=== PATIENT | female | born 1945 | race Caucasian/White ===

== ENCOUNTER 2019-05-18 13:03 | Emergency (ER) | payer MEDICARE, BC | END 2019-05-18 13:23 | disposition left against medical advice (07) | LOC: JD.ED 13:03 | DX: Z53.21 Procedure and treatment not carried out due to patient leaving prior to being seen by health care provider (principal) ==

== ENCOUNTER 2019-05-18 14:53 | Emergency (ER) | payer MEDICARE, BC ==
[2019-05-18 15:04] VITALS: BP 147/80; PULSE 74
--- NOTE | 2019-05-18 15:31 | EDM.PDOC ---
ED HPI GENERAL MEDICAL PROBLEM - General Chief Complaint: Respiratory Problem Stated Complaint: HURTS TO BREATHE Time Seen by Provider: 05/18/19 15:07 Source of Information: Reports: Patient, RN Notes Reviewed History Limitations: Reports: No Limitations - History of Present Illness INITIAL COMMENTS - FREE TEXT/NARRATIVE: The patient is a 74-year-old female who presents to the ED for the evaluation of her left sided chest discomfort. The patient states she woke up this morning around 530, and went about her daily activities making breakfast. When she noticed some burning in her chest, and a slight dry cough. Patient states she does reside in the winter in [facility], and recently got home May 10, she states that her and her did go out to get groceries after they got home, but have been home ever since. Patient does not have a fever at time of triage, nor does she recount having a fever at home. She states that she is having difficulty breathing and taking a deep breath as she states this does hurt her chest. The patient is quite concerned about the coronavirus at this time. She did check into the ER earlier, but then was deferred to the clinic per her choice for testing, but she states that she was not tested, and she went to the walk-in clinic for evaluation but they sent her back here as they felt it was more of a cardiac etiology. Patient states she does have a little bit of chest pressure in her sternal area, to the left side. She just feels as if there is something not right. She is not had any cardiac history, but does recount some valvular issues. Patient states that she does go on a 1.5 mile walk daily, she did not go on her walk today, but states she had no issues doing this yesterday - Related Data Allergies Allergy/AdvReac Type Severity Reaction Status Date / Time No Known Allergies Allergy Verified 10/23/14 21:27 Home Meds: Home Meds Calcium Carbonate/Vitamin D3 [Cvs Calcium + Vitamin D3 Sftgl] 1 cap PO BID 07/12 [History] Cholecalciferol (Vitamin D3) [Vitamin D3] 1 cap PO DAILY 07/12/14 [History] Denosumab [Prolia] 60 mg SQ ASDIRECTED 07/12/14 [History] Folic Acid 1 mg PO DAILY 07/12/14 [History] Glucosam/Chond/Collagen/Hyalur [Glucosamine Chondroitin] 1 cap PO DAILY [History] Levothyroxine [Synthroid] 50 mcg PO DAILY 07/12/14 [History] Multivitamin with Minerals [Multiple Vitamin] 1 tab PO DAILY 07/12/14 [History] [place]erson-3 Fatty Acids [Paterson-3] 1 cap PO BID 07/12/14 [History] Glucosamine/D3/Boswellia Marisol [Osteo Bi-Flex Caplet] 1 tab PO DAILY 10/23/14 [ History] Abatacept [Orencia] 500 mg IV ASDIRECTED #0 10/26/14 [Rx] Ondansetron [Zofran ODT] 4 mg PO Q6H PRN #10 tab.dis 10/26/14 [Rx] Acetaminophen [Tylenol Arthritis] 650 mg PO BID 05/18/19 [History] Past Medical History 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 Musculoskeletal History: Reports: RA, Other (See Below) Other Musculoskeletal History: elbow surgery due to fall Endocrine/Metabolic History: Reports: Hypothyroidism, Osteopenia - Past Surgical History HEENT Surgical History: Reports: Tonsillectomy Female Surgical History: Reports: Hysterectomy Musculoskeletal Surgical History: Reports: Arthroscopic Procedure Social & Family History - Living Situation & Occupation Living situation: Reports: , with Spouse Occupation: Retired ED ROS GENERAL - Review of Systems Review Of Systems: See Below Constitutional: Denies: Fever, Chills HEENT: Denies: Rhinitis Respiratory: Reports: Shortness of Breath (difficulty getting a deep breath in) Cardiovascular: Reports: Chest Pain (L sided chest discomfort). Denies: Dyspnea on Exertion, Lightheadedness GI/Abdominal: Denies: Abdominal Pain, Constipation, Diarrhea, Nausea, Vomiting Psychiatric: Denies: Anxiety ED EXAM, GENERAL - Physical Exam Exam: See Below Exam Limited By: No Limitations General Appearance: Alert, WD/WN, No Apparent Distress Ears: Normal External Exam Nose: Normal Inspection Throat/Mouth: Normal Inspection, Normal Lips, Normal Teeth, Normal Gums, Normal Oropharynx, Normal Voice, No Airway Compromise Head: Atraumatic, Normocephalic Neck: Normal Inspection Respiratory/Chest: No Respiratory Distress, Lungs Clear, Normal Breath Sounds, No Accessory Muscle Use, Chest Non-Tender Cardiovascular: Normal Peripheral Pulses, Regular Rate, Rhythm, No Edema, No JVD , No Murmur Peripheral Pulses: 3+: Radial (L), Radial (R) GI/Abdominal: Normal Bowel Sounds, Soft, Non-Tender, No Distention, No Mass Extremities: Normal Inspection, Normal Capillary Refill Neurological: Alert, Oriented, Normal Cognition, No Motor/Sensory Deficits Psychiatric: Normal Affect, Normal Mood Skin Exam: Warm, Dry, Intact, Normal Color, No Rash EKG INTERPRETATION EKG Date: 05/18/19 Time: 15:22 Rhythm: NSR Rate (Beats/Min): 70 [place]: Normal P-Wave: Present QRS: Normal ST-T: Normal QT: Normal EKG Interpretation Comments: no acute ischemic change, reviewed by myself and Dr. Little Course - Vital Signs Last Recorded V/S: Last Vital Signs Temp 97.1 F 05/18/19 15:01 Pulse 74 05/18/19 15:01 Resp 15 05/18/19 15:01 BP 147/80 H 05/18/19 15:01 Pulse Ox 98 05/18/19 15:01 - Orders/Labs/Meds Orders: Active Orders 24 hr Category Date Time Status EKG Documentation Completion [RC] STAT Care 05/18/19 15:10 Ordered Labs: Laboratory Tests 05/18/19 05/18/19 05/18/19 Range/Units 15:33 15:33 15:33 WBC 6.46 (3.98-10.04) K/mm3 RBC 4.82 (3.98-5.22) M/mm3 Hgb 14.1 D (11.2-15.7) gm/dl Hct 44.3 (34.1-44.9) % MCV 91.9 (79.4-94.8) fl MCH 29.3 (25.6-32.2) pg MCHC 31.8 L (32.2-35.5) g/dl RDW Std Deviation 43.7 (36.4-46.3) fL Plt Count 242 (182-369) K/mm3 MPV 8.4 L (9.4-12.3) fl Neutrophils % (Manual) 73 H (40-60) % Band Neutrophils % 0 (0-10) % Lymphocytes % (Manual) 22 (20-40) % Atypical Lymphs % 0 % Monocytes % (Manual) 4 (2-10) % Eosinophils % (Manual) 1 (0.7-5.8) % Basophils % (Manual) 0 L (0.1-1.2) Platelet Estimate Adequate RBC Morph Comment Normal PT 11.9 (9.7-12.0) SECONDS INR 1.10 APTT 25 (22-31) SECONDS Sodium 142 (136-145) mEq/L Potassium 4.3 (3.5-5.1) mEq/L Chloride 105 (98-107) mEq/L Carbon Dioxide 28 (21-32) mEq/L Anion Gap 13.3 (5-15) BUN 13 (7-18) mg/dL Creatinine 0.7 (0.55-1.02) mg/dL Est Cr Clr Drug Dosing 58.94 mL/min Estimated GFR (MDRD) > 60 (>60) mL/min BUN/Creatinine Ratio 18.6 H (14-18) Glucose 100 (83-115) mg/dL Calcium 8.9 (8.5-10.1) mg/dL Magnesium 2.1 (1.8-2.4) mg/dl Total Bilirubin 0.4 (0.2-1.0) mg/dL AST 23 (15-37) U/L ALT 35 (14-59) U/L Alkaline Phosphatase 56 (46-116) U/L Troponin I < 0.017 (0.00-0.056) ng/mL NT-Pro-B Natriuret Pep (0-125) pg/mL Total Protein 7.2 (6.4-8.2) g/dl Albumin 3.7 (3.4-5.0) g/dl Globulin 3.5 gm/dL Albumin/Globulin Ratio 1.1 (1-2) 03/25/20 Range/Units 15:33 WBC (3.98-10.04) K/mm3 RBC (3.98-5.22) M/mm3 Hgb (11.2-15.7) gm/dl Hct (34.1-44.9) % MCV (79.4-94.8) fl MCH (25.6-32.2) pg MCHC (32.2-35.5) g/dl RDW Std Deviation (36.4-46.3) fL Plt Count (182-369) K/mm3 MPV (9.4-12.3) fl Neutrophils % (Manual) (40-60) % Band Neutrophils % (0-10) % Lymphocytes % (Manual) (20-40) % Atypical Lymphs % % Monocytes % (Manual) (2-10) % Eosinophils % (Manual) (0.7-5.8) % Basophils % (Manual) (0.1-1.2) Platelet Estimate RBC Morph Comment PT (9.7-12.0) SECONDS INR APTT (22-31) SECONDS Sodium (136-145) mEq/L Potassium (3.5-5.1) mEq/L Chloride (98-107) mEq/L Carbon Dioxide (21-32) mEq/L Anion Gap (5-15) BUN (7-18) mg/dL Creatinine (0.55-1.02) mg/dL Est Cr Clr Drug Dosing mL/min Estimated GFR (MDRD) (>60) mL/min BUN/Creatinine Ratio (14-18) Glucose (83-115) mg/dL Calcium (8.5-10.1) mg/dL Magnesium (1.8-2.4) mg/dl Total Bilirubin (0.2-1.0) mg/dL AST (15-37) U/L ALT (14-59) U/L Alkaline Phosphatase (46-116) U/L Troponin I (0.00-0.056) ng/mL NT-Pro-B Natriuret Pep 69 (0-125) pg/mL Total Protein (6.4-8.2) g/dl Albumin (3.4-5.0) g/dl Globulin gm/dL Albumin/Globulin Ratio (1-2) - Re-Assessments/Exams Free Text/Narrative Re-Assessment/Exam: 05/18/19 15:34 Patient presents to the ED today for the evaluation of some difficulty breathing. I have ordered an EKG, chest x-ray, and other lab work for further evaluation. Patient is afebrile at time of triage and does not recount a fever at home, even with her traveling from [facility], and being in a [employer] like [employer]ist while down there and coming home and grocery shopping. I do believe she is fairly low risk for having contracted coronavirus at all. 1 of the only risk factors is her age obviously, and that she has been in baptist type settings, but does live at home and has been self quarantined since she got home on the . Patient has no other symptoms other than the shortness of breath and a slight dry cough, and she did not cough at any point during exam. 05/18/19 17:04 The patient's cardiac work-up is within normal limits. Chest x-ray does show signs of emphysematous changes but no other consolidation or infiltrates. I did assure the patient that the likelihood of her having coronavirus is very low due to her not having a fever. I will direct her back to her regular care provider for a possible stress test and for a blood pressure check as she states her blood pressures normally in the low 100s and was concerned as its 130 systolically now. I did tell her to take some blood pressures at home, and trend these to see if they stay elevated or not. Patient was okay with this plan at this time. I will have the patient fpc in place at home as much as possible. Departure - Departure Time of Disposition: 17:06 Disposition: Home, Self-Care 01 Condition: Fair Clinical Impression: Atypical chest pain - Discharge Information *PRESCRIPTION DRUG MONITORING PROGRAM REVIEWED*: No *COPY OF PRESCRIPTION DRUG MONITORING REPORT IN PATIENT IRAIS: No Instructions: Nonspecific Chest Pain, Adult, [id number] Referrals: Veda Szymanski MD [Primary Care Provider] - Forms: ED Department Discharge Additional Instructions: You were evaluated in the ER today regarding your difficulty breathing. Your work-up in the ER today included an EKG, chest x-ray, and lab work. All of which were within normal limits. Recommend you keep tabs on your blood pressure, and schedule a follow-up appointment with your primary care provider in the next week or so for further evaluation and to make sure your symptoms are getting better as expected. Recommend you talk with your provider about a possible stress test for further cardiac evaluation. At this time you are deemed fairly low risk for having coronavirus. However if your symptoms seem to worsen, please do not hesitate to seek care for reevaluation. At this time the [place] [facility] of [facility] is asking that we ration the testing, and unfortunately without a fever, you do not screen in for testing at this time. Please return to the ER at any time if symptoms change or worsen. Sepsis Event Note - Evaluation Sepsis Screening Result: No Definite Risk - Focused Exam Vital Signs: Vital Signs Temp Pulse Resp BP Pulse Ox 05/18/19 15:01 97.1 F 74 15 147/80 H 98 Date Exam was Performed: 05/18/19 Time Exam was Performed: 17:04 - My Orders Last 24 Hours: My Active Orders 05/18/19 15:10 EKG Documentation Completion [RC] STAT - Assessment/Plan Last 24 Hours: My Active Orders 05/18/19 15:10 EKG Documentation Completion [RC] STAT
--- NOTE | 2019-05-18 15:33 | CR ---
Chest: 2 views of the chest were obtained. Comparison: No prior chest imaging. Heart size and mediastinum are within normal limits. Lungs are clear. Scoliosis is noted within the spine. Surgical clips are seen within the upper right abdomen. Lungs are slightly hyperinflated compatible with emphysematous change. Impression: 1. Emphysematous change. 2. Other findings as noted above. 3. Nothing acute is appreciated. Diagnostic code #2 This report was dictated in MDT
== END 2019-05-18 17:20 | disposition home or self-care (01) ==
LOC: JD.ED 14:53
DX: R07.89 Other chest pain (principal); Z79.899 Other long term (current) drug therapy
CPT/HCPCS: 36415; 71046; 71046-26; 80053; 83735; 83880; 84484; 85007; 85027; 85610; 85730; 93005; 93010; 99283; 99285-25

== ENCOUNTER 2019-06-23 07:30 | Emergency (ER) | payer MEDICARE, BC ==
--- NOTE | 2019-06-23 08:11 | EDM.PDOC ---
ED HPI GENERAL MEDICAL PROBLEM - General Chief Complaint: General Stated Complaint: LEFT SIDE OF HEAD AND BACK PAIN Time Seen by Provider: 06/23/19 07:47 Source of Information: Reports: Patient History Limitations: Reports: No Limitations - History of Present Illness INITIAL COMMENTS - FREE TEXT/NARRATIVE: Mrs. Malave is a very pleasant 74-year-old woman with a past medical history significant for rheumatoid arthritis, untreated anxiety, and irritable bowel syndrome, who now presents to the ED stating that she developed left upper chest pain that radiated to the left side of her neck, down the upper left side of her back, and up to her left ear and the left side of her head 2 weeks ago. She states that it has been constant, she has not identified any modifiers. She also reports occasional slight dyspnea on exertion for the past 2 weeks, that has been worse over the past 2 days. She has been having nausea come and go since yesterday. She has had chills, but no fever for the past 2 to 3 weeks , and states that she has had a "scratchy throat" for an unknown period of time. Other than the symptoms, however, the patient denies recent fever, ear pain, nasal or sinus congestion, cough, dyspnea at rest, palpitations, vomiting , constipation, diarrhea, abdominal pain, urinary symptoms, recent weight gain or weight loss, recent bloody bowel movements or black bowel movements, recent joint aches, headaches, or rashes. The patient states that she was screened for COVID-19 yesterday, not because of her symptoms, but because her is at risk for illness, therefore she wanted to get checked out. She does not have those results yet. Here in the ED, the patient is found to be hemodynamically stable, afebrile, saturating 100% on room air. The patient's PCP is Dr. Veda Samuels. Her Journeyman Pipefitter is Dr. Ty Hahn. Left Chest Pain Score (Numeric/FACES): 7 - Related Data Allergies Allergy/AdvReac Type Severity Reaction Status Date / Time No Known Allergies Allergy Verified 06/23/19 07:42 Home Meds: Home Meds Calcium Carbonate/Vitamin D3 [Cvs Calcium + Vitamin D3 Sftgl] 1 cap PO BID 07/12 [History] Cholecalciferol (Vitamin D3) [Vitamin D3] 1 cap PO DAILY 07/12/14 [History] Denosumab [Prolia] 60 mg SQ Q6M 07/12/14 [History] Folic Acid 1 mg PO DAILY 07/12/14 [History] Glucosam/Chond/Collagen/Hyalur [Glucosamine Chondroitin] 1 cap PO DAILY [History] Levothyroxine [Synthroid] 50 mcg PO DAILY 07/12/14 [History] Multivitamin with Minerals [Multiple Vitamin] 1 tab PO DAILY 07/12/14 [History] Wyatt-3 Fatty Acids [Wyatt-3] 1 cap PO BID 07/12/14 [History] Glucosamine/D3/Boswellia Marisol [Osteo Bi-Flex Caplet] 1 tab PO DAILY 10/23/14 [ History] Abatacept [Orencia] 500 mg IV ASDIRECTED #0 10/26/14 [Rx] Ondansetron [Zofran ODT] 4 mg PO Q6H PRN #10 tab.dis 10/26/14 [Rx] Acetaminophen [Tylenol Arthritis] 650 mg PO BID 05/18/19 [History] Past Medical History Gastrointestinal History: Reports: Irritable Bowel Syndrome Genitourinary History: Reports: Urinary Incontinence (stress incontinence) 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 History: Reports: Endometriosis Musculoskeletal History: Reports: Fracture (bilateral elbows), RA Psychiatric History: Reports: Anxiety (untreated) Endocrine/Metabolic History: Reports: Hypothyroidism, Osteopenia Oncologic (Cancer) History: Reports: Basal Cell Carcinoma (scalp), Squamous Cell Carcinoma (right johnson) - Infectious Disease History Infectious Disease History: Reports: Measles - Past Surgical History HEENT Surgical History: Reports: Oral Surgery (wisdom teeth extraction), Tonsillectomy GI Surgical History: Reports: Appendectomy, Cholecystectomy (2002 or 2003) Female Surgical History: Reports: Hysterectomy (complete), Other (See Below) (Exploratory laparoscopy for endometriosis x 2) Musculoskeletal Surgical History: Reports: Arthroscopic Knee (right), ORIF ( bilateral elbows) Oncologic Surgical History: Reports: Other (See Below) (BCC excised from scalp. SCC excised from right leg) Social & Family History - Tobacco Use Smoking Status *Q: Never Smoker Second Hand Smoke Exposure: No - Caffeine Use Caffeine Use: Reports: Coffee - Alcohol Use Alcohol Use History: No - Recreational Drug Use Recreational Drug Use: No - Living Situation & Occupation Living situation: Reports: , with Spouse Occupation: Retired ED ROS GENERAL - Review of Systems Review Of Systems: Comprehensive ROS is negative, except as noted in HPI. ED EXAM, GENERAL - Physical Exam Exam: See Below Exam Limited By: No Limitations General Appearance: Alert, WD/WN, No Apparent Distress Eye Exam: Bilateral Eye: EOMI, Normal Inspection Ears: Normal External Exam, Hearing Grossly Normal Nose: Normal Inspection Throat/Mouth: Normal Inspection, Normal Lips, Normal Voice, No Airway Compromise Head: Atraumatic, Normocephalic Neck: Normal Inspection, Full Range of Motion Respiratory/Chest: No Respiratory Distress, Lungs Clear, Normal Breath Sounds, No Accessory Muscle Use Cardiovascular: Normal Peripheral Pulses, Regular Rate, Rhythm, No Edema, No Gallop, No JVD, No Murmur, No Rub Peripheral Pulses: 4+: Radial (L), Radial (R) GI/Abdominal: Normal Bowel Sounds, Soft, Non-Tender, No Organomegaly, No Distention, No Abnormal Bruit, No Mass (Female) Exam: Deferred Rectal (Female) Exam: Deferred Back Exam: Normal Inspection, Full Range of Motion, NT Extremities: Normal Inspection, Normal Range of Motion, No Pedal Edema, Normal Capillary Refill Neurological: Alert, Oriented, Normal Cognition, No Motor/Sensory Deficits Psychiatric: Normal Affect Skin Exam: Warm, Dry, Intact, Normal Color, No Rash EKG INTERPRETATION EKG Date: 06/23/19 Time: 07:42 Rhythm: NSR Rate (Beats/Min): 81 [place]: Normal P-Wave: Enlarged (LAE) QRS: Normal ST-T: Normal QT: Normal Comparison: No Change (05/18/2019) Course - Vital Signs Last Recorded V/S: Last Vital Signs Temp 36.6 C 06/23/19 07:42 Pulse 73 06/23/19 11:15 Resp 18 06/23/19 11:15 BP 121/79 06/23/19 11:15 Pulse Ox 97 06/23/19 11:15 - Orders/Labs/Meds Labs: Laboratory Tests 06/23/19 06/23/19 06/23/19 Range/Units 09:20 09:20 09:20 WBC 7.16 (3.98-10.04) K/mm3 RBC 4.38 (3.98-5.22) M/mm3 Hgb 12.8 (11.2-15.7) gm/dl Hct 40.4 (34.1-44.9) % MCV 92.2 (79.4-94.8) fl MCH 29.2 (25.6-32.2) pg MCHC 31.7 L (32.2-35.5) g/dl RDW Std Deviation 43.2 (36.4-46.3) fL Plt Count 259 (182-369) K/mm3 MPV 8.3 L (9.4-12.3) fl Neutrophils % (Manual) 70 H (40-60) % Band Neutrophils % 0 (0-10) % Lymphocytes % (Manual) 21 (20-40) % Atypical Lymphs % 0 % Monocytes % (Manual) 8 (2-10) % Eosinophils % (Manual) 1 (0.7-5.8) % Basophils % (Manual) 0 L (0.1-1.2) Platelet Estimate Adequate RBC Morph Comment Normal PT 12.2 H (9.7-12.0) SECONDS INR 1.13 APTT 26 (22-31) SECONDS D-Dimer, Quantitative < 0.19 L (0.19-0.50) mg/L Sodium 141 (136-145) mEq/L Potassium 4.4 (3.5-5.1) mEq/L Chloride 105 (98-107) mEq/L Carbon Dioxide 28 (21-32) mEq/L Anion Gap 12.4 (5-15) BUN 11 (7-18) mg/dL Creatinine 0.7 (0.55-1.02) mg/dL Est Cr Clr Drug Dosing 58.94 mL/min Estimated GFR (MDRD) > 60 (>60) mL/min BUN/Creatinine Ratio 15.7 (14-18) Glucose 86 (83-115) mg/dL Calcium 8.5 (8.5-10.1) mg/dL Magnesium 2.1 (1.8-2.4) mg/dl Total Bilirubin 0.5 (0.2-1.0) mg/dL AST 23 (15-37) U/L ALT 33 (14-59) U/L Alkaline Phosphatase 44 L (46-116) U/L Troponin I < 0.017 (0.00-0.056) ng/mL NT-Pro-B Natriuret Pep (0-125) pg/mL Total Protein 6.7 (6.4-8.2) g/dl Albumin 3.2 L (3.4-5.0) g/dl Globulin 3.5 gm/dL Albumin/Globulin Ratio 0.9 L (1-2) /30/20 Range/Units 09:20 WBC (3.98-10.04) K/mm3 RBC (3.98-5.22) M/mm3 Hgb (11.2-15.7) gm/dl Hct (34.1-44.9) % MCV (79.4-94.8) fl MCH (25.6-32.2) pg MCHC (32.2-35.5) g/dl RDW Std Deviation (36.4-46.3) fL Plt Count (182-369) K/mm3 MPV (9.4-12.3) fl Neutrophils % (Manual) (40-60) % Band Neutrophils % (0-10) % Lymphocytes % (Manual) (20-40) % Atypical Lymphs % % Monocytes % (Manual) (2-10) % Eosinophils % (Manual) (0.7-5.8) % Basophils % (Manual) (0.1-1.2) Platelet Estimate RBC Morph Comment PT (9.7-12.0) SECONDS INR APTT (22-31) SECONDS D-Dimer, Quantitative (0.19-0.50) mg/L Sodium (136-145) mEq/L Potassium (3.5-5.1) mEq/L Chloride (98-107) mEq/L Carbon Dioxide (21-32) mEq/L Anion Gap (5-15) BUN (7-18) mg/dL Creatinine (0.55-1.02) mg/dL Est Cr Clr Drug Dosing mL/min Estimated GFR (MDRD) (>60) mL/min BUN/Creatinine Ratio (14-18) Glucose (83-115) mg/dL Calcium (8.5-10.1) mg/dL Magnesium (1.8-2.4) mg/dl Total Bilirubin (0.2-1.0) mg/dL AST (15-37) U/L ALT (14-59) U/L Alkaline Phosphatase (46-116) U/L Troponin I (0.00-0.056) ng/mL NT-Pro-B Natriuret Pep 106 (0-125) pg/mL Total Protein (6.4-8.2) g/dl Albumin (3.4-5.0) g/dl Globulin gm/dL Albumin/Globulin Ratio (1-2) Meds: Medications Discontinued Medications Generic Name Dose Route Start Last Admin Trade Name Bryceq PRN Reason Stop Dose Admin Acetaminophen 650 mg 06/23/19 10:49 06/23/19 10:59 Tylenol PO 06/23/19 10:50 650 mg NOW ONE Administration - Re-Assessments/Exams Free Text/Narrative Re-Assessment/Exam: 06/23/19 08:09 The patient is concerned that her symptoms may constitute either a stroke or a heart attack. I do not think the patient is experiencing either, however, I have ordered a work-up that includes blood work, a chest x-ray, a CT of her head without contrast, and an ECG. 06/23/19 09:35 CT of the head without contrast as read by Dr. Bangura as: 1. Minimal senescent change as noted above. 2. Nothing acute is identified on noncontrast head CT study. Two-view chest radiograph reviewed. The cardiac silhouette is within normal limits. No pulmonary vascular congestion. No pleural effusions. No focal infiltrate. No pneumothorax. There is hyperinflation and bilateral diaphragmatic flattening, consistent with COPD. Thoracolumbar scoliosis noted. Loss of normal cartilaginous spacing in both shoulders noted. Formal read per the Radiologist pending. 06/23/19 10:36 The patient's CBC is unremarkable. Her CMP is unremarkable. Her magnesium level is within normal limits at 2.1. Her BNP is within normal limits at 106. Her troponin is undetectably low. Her D-dimer is undetectably low. Her coags are notable for a PT slightly elevated at 12.2, but are otherwise unremarkable. 06/23/19 10:49 Test results discussed with the patient. As above, today's work-up is unremarkable, and does not explain the cause of her pain. As her pain could be due to a number of things, I don't want to speculate as to the cause, however, I reassured her that she is not suffering from a heart attack or stroke. She does not have a pulmonary embolus, pneumonia, or pneumothorax. I recommended that the patient follow-up with her PCP for further evaluation. In the meantime , the patient may increase her current dosage of acetaminophen from 650 mg po BID to 650 mg po Q6 hrs. Since the patient did not take her morning dose of acetaminophen today, she requested a dosage at this time. Departure - Departure Time of Disposition: 10:59 Disposition: Home, Self-Care 01 Condition: Good Clinical Impression: Chest pain of uncertain etiology - Discharge Information *PRESCRIPTION DRUG MONITORING PROGRAM REVIEWED*: Not Applicable *COPY OF PRESCRIPTION DRUG MONITORING REPORT IN PATIENT IRAIS: Not Applicable Instructions: Nonspecific Chest Pain, Adult, [id number] Referrals: Veda Szymanski MD [Primary Care Provider] - Ty Hahn DO [Ordering Only Provider] - Forms: ED Department Discharge Additional Instructions: You were seen in the emergency room for upper left chest pain radiating to the left side of your neck and head, along with mild shortness of breath with exertion and nausea. Work-up in the ER included blood work, a chest x-ray, a CT scan of your head, and an ECG. Your entire work-up was unremarkable, and does not explain the cause of your symptoms. We recommend that you follow-up with your PCP, Dr. Veda Conrad, for further evaluation. In the meantime, you may increase the dosage of your acetaminophen (Tylenol) to 1 tablet (650 mg) every 6 hours. If any other problems, please do not hesitate to return to the ER. Sepsis Event Note - Evaluation Sepsis Screening Result: No Definite Risk - Focused Exam Date Exam was Performed: 06/26/19 Time Exam was Performed: 10:50
--- NOTE | 2019-06-23 09:14 | CT ---
Head CT Technique: Multiple axial sections through the brain were obtained. Intravenous contrast was not utilized. Comparison: Prior head CT study of 05/21/09. Findings: Ventricles along with basal cisterns and sulci over the convexities are mildly prominent. Minimal areas of diminished density are noted within the periventricular white matter compatible with minimal small vessel ischemic demyelination change. 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 No other abnormal parenchymal densities are seen. No evidence of intracranial hemorrhage. No midline shift or mass-effect is identified. Bone window settings were reviewed. Visualized paranasal sinuses and mastoid sinuses shows nothing acute. No acute calvarial finding is seen. Impression: 1. Minimal senescent change as noted above. 2. Nothing acute is identified on noncontrast head CT study. Diagnostic code #2 This report was dictated in MDT
--- NOTE | 2019-06-23 09:52 | CR ---
Chest: 2 views of the chest were obtained. Comparison: Prior chest x-ray of 05/18/19. Heart size and mediastinum are normal. Lungs are clear with no acute parenchymal change. Scoliosis is noted within the spine. Bony structures are also osteopenic. Surgical clips are noted from prior cholecystectomy. Impression: 1. Nothing acute is seen on 2 view chest x-ray. Diagnostic code #2 This report was dictated in MDT
[2019-06-23] MEDS ORDERED: Acetaminophen 325 MG Tab PO ONE (10:49)
[2019-06-23 14:13] VITALS: BP 121/79; PULSE 73
== END 2019-06-23 11:22 | disposition home or self-care (01) ==
LOC: JD.ED 07:30
DX: R07.9 Chest pain, unspecified (principal); E03.9 Hypothyroidism, unspecified; Z79.899 Other long term (current) drug therapy
CPT/HCPCS: 36415; 70450; 71046; 80053; 83735; 83880; 84484; 85007; 85027; 85379; 85610; 85730; 93005; 99285; A9270; 93010; 99283

== ENCOUNTER 2020-07-08 10:48 | Emergency (ER) | payer MEDICARE, BC ==
[2020-07-08] MEDS ORDERED: Sodium Chloride 0.9% 10 ML Syringe FLUSH PRN (11:12)
--- NOTE | 2020-07-08 11:14 | EDM.PDOC ---
ED HPI GENERAL MEDICAL PROBLEM - General Chief Complaint: Chest Pain Stated Complaint: [facility] Time Seen by Provider: 07/08/20 10:58 Source of Information: Reports: Patient, EMS History Limitations: Reports: No Limitations - History of Present Illness INITIAL COMMENTS - FREE TEXT/NARRATIVE: The patient presents by [facility] for chest pain. She said on 06/28 she had a stent placed in [place]. She flew back here on the . She had a great day yesterday. This morning she woke up not feeling well about 04:30. She had a headache, mild nausea and her chest and left arm hurt. She tried nitro and that did not help. She took her aspirin this morning. She has no fever, chills, cough, congestion, runny nose, shortness of breath, abdominal pain, or vomiting. She has had some trouble with her bowel movements. She took an enema and had good results. She does not smoke. She has no pain in her legs. She has some mild edema. Onset: Gradual Duration: Hour(s): Location: Reports: Chest, Upper Extremity, Left Quality: Reports: Other (heaviness and burning) Severity: Moderate Improves with: Reports: None Worsens with: Reports: None Associated Symptoms: Reports: Chest Pain, Headaches. Denies: Confusion, Cough, Fever/Chills, Nausea/Vomiting, Shortness of Breath Left Lower Chest Pain Score (Numeric/FACES): 8 - Related Data Allergies Allergy/AdvReac Type Severity Reaction Status Date / Time No Known Allergies Allergy Verified 07/08/20 10:54 Home Meds: Home Meds Calcium Carbonate/Vitamin D3 [Cvs Calcium + Vitamin D3 Sftgl] 1 cap PO BID 07/12/14 [History] Cholecalciferol (Vitamin D3) [Vitamin D3] 1 cap PO DAILY 07/12/14 [History] Denosumab [Prolia] 60 mg SQ Q6M 07/12/14 [History] Folic Acid 1 mg PO DAILY 07/12/14 [History] Glucosam/Chond/Collagen/Hyalur [Glucosamine Chondroitin] 1 cap PO DAILY 07/12/14 [History] Levothyroxine [Synthroid] 50 mcg PO DAILY 07/12/14 [History] Multivitamin with Minerals [Multiple Vitamin] 1 tab PO DAILY 07/12/14 [History] [place]ry-3 Fatty Acids [Surry-3] 1 cap PO BID 07/12/14 [History] Glucosamine/D3/Boswellia Marisol [Osteo Bi-Flex Caplet] 1 tab PO DAILY 10/23/14 [History] Abatacept [Orencia] 500 mg IV ASDIRECTED #0 10/26/14 [Rx] Ondansetron [Zofran ODT] 4 mg PO Q6H PRN #10 tab.dis 10/26/14 [Rx] Acetaminophen [Tylenol Arthritis] 650 mg PO BID 05/18/19 [History] Aspirin 81 mg PO DAILY 07/08/20 [History] Isosorbide Mononitrate [Imdur] 30 mg PO DAILY #30 tab.er 07/08/20 [Rx] Thiamine [Vitamin B-1] 100 mg PO DAILY 07/08/20 [History] Ticagrelor [Brilinta] 90 mg PO BID 07/08/20 [History] atorvaSTATin [Lipitor] 20 mg PO BEDTIME 07/08/20 [History] Past Medical History Gastrointestinal History: Reports: Irritable Bowel Syndrome Genitourinary History: Reports: Urinary Incontinence ICING COATER History: Reports: Endometriosis Other ICING COATER History: x3 vag del Musculoskeletal History: Reports: Fracture, RA Other Musculoskeletal History: elbow surgery due to fall Psychiatric History: Reports: Anxiety Endocrine/Metabolic History: Reports: Hypothyroidism, Osteopenia Oncologic (Cancer) History: Reports: Basal Cell Carcinoma, Squamous Cell Carcinoma - Infectious Disease History Infectious Disease History: Reports: Measles - Past Surgical History HEENT Surgical History: Reports: Oral Surgery, Tonsillectomy Cardiovascular Surgical History: Reports: Coronary Artery Stent GI Surgical History: Reports: Appendectomy, Cholecystectomy Female Surgical History: Reports: Hysterectomy, Other (See Below) Musculoskeletal Surgical History: Reports: Arthroscopic Knee, ORIF Oncologic Surgical History: Reports: Other (See Below) Social & Family History - Tobacco Use Tobacco Use Status *Q: Never Tobacco User - Caffeine Use Caffeine Use: Reports: Coffee - Recreational Drug Use Recreational Drug Use: No - Living Situation & Occupation Living situation: Reports: , with Spouse Occupation: Retired ED ROS GENERAL - Review of Systems Review Of Systems: See Below Constitutional: Reports: No Symptoms HEENT: Reports: No Symptoms Respiratory: Reports: No Symptoms Cardiovascular: Reports: Chest Pain Endocrine: Reports: No Symptoms GI/Abdominal: Reports: Nausea. Denies: Abdominal Pain, Vomiting : Reports: No Symptoms Musculoskeletal: Reports: Arm Pain (left) Skin: Reports: No Symptoms Neurological: Reports: No Symptoms ED EXAM, GENERAL - Physical Exam Exam: See Below Exam Limited By: No Limitations General Appearance: Alert, No Apparent Distress Ears: Normal External Exam Nose: Normal Inspection Head: Atraumatic, Normocephalic Neck: Normal Inspection Respiratory/Chest: No Respiratory Distress, Lungs Clear, Normal Breath Sounds Cardiovascular: Regular Rate, Rhythm, No Edema, No Murmur GI/Abdominal: Soft, Non-Tender, No Organomegaly, No Mass Back Exam: Normal Inspection Extremities: Normal Inspection #1 Interpretation EKG Date: 07/08/20 Time: 10:50 Rhythm: NSR Rate (Beats/Min): 84 [place]: Normal P-Wave: Present QRS: Normal ST-T: Normal QT: Normal Course - Vital Signs Last Recorded V/S: Last Vital Signs Temp 96.7 F L 07/08/20 10:51 Pulse 88 07/08/20 10:51 Resp 16 07/08/20 10:51 BP 125/71 07/08/20 10:51 Pulse Ox - Orders/Labs/Meds Orders: Active Orders 24 hr Category Date Time Status Cardiac Monitoring [RC] . DIRECTED Care 07/08/20 11:12 Active EKG Documentation Completion [RC] STAT Care 07/08/20 11:13 Active Peripheral IV Care [RC] . DIRECTED Care 07/08/20 11:13 Active Chest 1V Frontal [CR] Stat Exams 07/08/20 11:13 Taken Sodium Chloride 0.9% [Saline Flush] Med 07/08/20 11:12 Active 10 ml FLUSH ASDIRECTED PRN Peripheral IV Insertion Adult [OM.PC] Stat Oth 07/08/20 11:12 Ordered Medication Orders Sodium Chloride (Sodium Chloride 0.9% 10 Ml Syringe) 10 ml FLUSH ASDIRECTED PRN PRN Reason: Keep Vein Open Last Admin: 07/08/20 11:19 Dose: 10 ml Documented by: JOSÉ Labs: Laboratory Tests 07/08/20 07/08/20 07/08/20 Range/Units 11:00 11:00 11:00 WBC 7.41 (3.98-10.04) K/mm3 RBC 4.19 (3.98-5.22) M/mm3 Hgb 12.6 (11.2-15.7) gm/dl Hct 38.7 (34.1-44.9) % MCV 92.4 (79.4-94.8) fl MCH 30.1 (25.6-32.2) pg MCHC 32.6 (32.2-35.5) g/dl RDW Std Deviation 44.7 (36.4-46.3) fL Plt Count 281 (182-369) K/mm3 MPV 8.4 L (9.4-12.3) fl Neut % (Auto) 68.3 (34.0-71.1) % Lymph % (Auto) 19.7 (19.3-51.7) % [place] % (Auto) 8.2 (4.7-12.5) % Eos % (Auto) 3.4 (0.7-5.8) Baso % (Auto) 0.3 (0.1-1.2) % Neut # (Auto) 5.06 (1.56-6.13) K/mm3 Lymph # (Auto) 1.46 (1.18-3.74) K/mm3 [place] # (Auto) 0.61 H (0.24-0.36) K/mm3 Eos # (Auto) 0.25 (0.04-0.36) K/mm3 Baso # (Auto) 0.02 (0.01-0.08) K/mm3 D-Dimer, Quantitative (0.19-0.50) mg/L Sodium 142 (136-145) mEq/L Potassium 3.8 (3.5-5.1) mEq/L Chloride 105 (98-107) mEq/L Carbon Dioxide 26 (21-32) mEq/L Anion Gap 14.8 (5-15) BUN 11 (7-18) mg/dL Creatinine 0.8 (0.55-1.02) mg/dL Est Cr Clr Drug Dosing 47.71 mL/min Estimated GFR (MDRD) > 60 (>60) mL/min BUN/Creatinine Ratio 13.8 L (14-18) Glucose 94 (70-99) mg/dL Calcium 8.2 L (8.5-10.1) mg/dL Magnesium 1.9 (1.8-2.4) mg/dL Total Bilirubin 0.6 (0.2-1.0) mg/dL AST 33 (15-37) U/L ALT 49 (14-59) U/L Alkaline Phosphatase 51 (46-116) U/L Troponin I < 0.017 (0.00-0.056) ng/mL NT-Pro-B Natriuret Pep 104 (0-125) pg/mL Total Protein 6.4 (6.4-8.2) g/dl Albumin 3.2 L (3.4-5.0) g/dl Globulin 3.2 gm/dL Albumin/Globulin Ratio 1.0 (1-2) 07/08/20 Range/Units 11:00 WBC (3.98-10.04) K/mm3 RBC (3.98-5.22) M/mm3 Hgb (11.2-15.7) gm/dl Hct (34.1-44.9) % MCV (79.4-94.8) fl MCH (25.6-32.2) pg MCHC (32.2-35.5) g/dl RDW Std Deviation (36.4-46.3) fL Plt Count (182-369) K/mm3 MPV (9.4-12.3) fl Neut % (Auto) (34.0-71.1) % Lymph % (Auto) (19.3-51.7) % [place] % (Auto) (4.7-12.5) % Eos % (Auto) (0.7-5.8) Baso % (Auto) (0.1-1.2) % Neut # (Auto) (1.56-6.13) K/mm3 Lymph # (Auto) (1.18-3.74) K/mm3 [place] # (Auto) (0.24-0.36) K/mm3 Eos # (Auto) (0.04-0.36) K/mm3 Baso # (Auto) (0.01-0.08) K/mm3 D-Dimer, Quantitative 0.39 (0.19-0.50) mg/L Sodium (136-145) mEq/L Potassium (3.5-5.1) mEq/L Chloride (98-107) mEq/L Carbon Dioxide (21-32) mEq/L Anion Gap (5-15) BUN (7-18) mg/dL Creatinine (0.55-1.02) mg/dL Est Cr Clr Drug Dosing mL/min Estimated GFR (MDRD) (>60) mL/min BUN/Creatinine Ratio (14-18) Glucose (70-99) mg/dL Calcium (8.5-10.1) mg/dL Magnesium (1.8-2.4) mg/dL Total Bilirubin (0.2-1.0) mg/dL AST (15-37) U/L ALT (14-59) U/L Alkaline Phosphatase (46-116) U/L Troponin I (0.00-0.056) ng/mL NT-Pro-B Natriuret Pep (0-125) pg/mL Total Protein (6.4-8.2) g/dl Albumin (3.4-5.0) g/dl Globulin gm/dL Albumin/Globulin Ratio (1-2) Meds: Medications Generic Name Dose Route Start Last Admin Trade Name Freq PRN Reason Stop Dose Admin Sodium Chloride 10 ml 07/08/20 11:12 07/08/20 11:19 Sodium Chloride 0.9% 10 Ml Syringe FLUSH 10 ml ASDIRECTED PRN Administration Keep Vein Open - Re-Assessments/Exams Free Text/Narrative Re-Assessment/Exam: 07/08/20 11:23 I ordered an IV saline lock, EKG, CXR and labs. She did take aspirin this morning. 07/08/20 12:44 Her EKG shows a NSR with no acute changes. Her CXR looks good. Her CBC and CMP looks good. Her troponin and D-dimer are negative. Her pain is better but not gone. I called [facility] in [place] and talked with the alley cleaner oncology navigator Dr Galo and he felt with the timing of the chest pain at 0430 we should see a bump in troponin by now and no EKG changes. He did not think this was an [place]. He did want her on Imdur 30mg and follow up with cardiology. Departure - Departure Time of Disposition: 12:50 Disposition: Home, Self-Care 01 Condition: Good Clinical Impression: Atypical chest pain Prescriptions: Isosorbide Mononitrate [Imdur] 30 mg PO DAILY #30 tab.er Referrals: Veda Szymanski MD [Primary Care Provider] - 1 Week Forms: ED Department Discharge Additional Instructions: Take your medications as prescribed. Take the imdur starting tomorrow morning. Do not take more nitro tonight. You can take more tylenol today for pain. Follow up with Dr Galo a alley cleaner in [place] or one of his partners. His number is . Follow up with Dr Samuels. Please return if you are worse. Sepsis Event Note (ED) - Evaluation Sepsis Screening Result: No Definite Risk - Focused Exam Vital Signs: Vital Signs Temp Pulse Resp BP 07/08/20 10:51 96.7 F L 88 16 125/71 - My Orders Last 24 Hours: My Active Orders 07/08/20 11:12 Cardiac Monitoring [RC] . DIRECTED Sodium Chloride 0.9% [Saline Flush] 10 ml FLUSH ASDIRECTED PRN Peripheral IV Insertion Adult [OM.PC] Stat 07/08/20 11:13 EKG Documentation Completion [RC] STAT Peripheral IV Care [RC] . DIRECTED Chest 1V Frontal [CR] Stat - Assessment/Plan Last 24 Hours: My Active Orders 07/08/20 11:12 Cardiac Monitoring [RC] . DIRECTED Sodium Chloride 0.9% [Saline Flush] 10 ml FLUSH ASDIRECTED PRN Peripheral IV Insertion Adult [OM.PC] Stat 07/08/20 11:13 EKG Documentation Completion [RC] STAT Peripheral IV Care [RC] . DIRECTED Chest 1V Frontal [CR] Stat
[2020-07-08 13:06] VITALS: BP 105/60; PULSE 77
--- NOTE | 2020-07-09 06:48 | CR ---
Chest: Portable view of the chest was obtained. Comparison: Prior chest x-ray 05/18/19. Heart size and mediastinum are within normal limits for portable technique. Lungs are clear with no acute parenchymal change. Slight scoliosis is noted within the spine with mild degenerative change. Surgical clips are noted from prior cholecystectomy. Impression: 1. Nothing acute is seen on 2 view chest x-ray. Diagnostic code #2
== END 2020-07-08 13:05 | disposition home or self-care (01) ==
LOC: JD.ED 10:48
DX: R07.89 Other chest pain (principal); M06.9 Rheumatoid arthritis, unspecified; E03.9 Hypothyroidism, unspecified; Z79.899 Other long term (current) drug therapy; Z79.82 Long term (current) use of aspirin
CPT/HCPCS: 36415; 71045; 71045-26; 80053; 83735; 83880; 84484; 85025; 85379; 93005; 93010; 99284; 99285-25

== ENCOUNTER 2020-07-09 18:12 | Emergency (ER) | payer MEDICARE, BC ==
[2020-07-09 18:24] VITALS: BP 129/69; PULSE 93
[2020-07-09] MEDS ORDERED: Sodium Chloride 0.9% 10 ML Syringe FLUSH PRN (18:44)
--- NOTE | 2020-07-09 19:11 | EDM.PDOC ---
ED HPI GENERAL MEDICAL PROBLEM - General Chief Complaint: Cardiovascular Problem Stated Complaint: chest pain sob Time Seen by Provider: 07/09/20 18:43 Source of Information: Reports: Patient, RN Notes Reviewed History Limitations: Reports: No Limitations - History of Present Illness INITIAL COMMENTS - FREE TEXT/NARRATIVE: Patient is a 75-year-old female who presents to the ER for her chest pain and shortness of breath. Patient recently had stents placed in [place] about a week ago. She reported to the ER last night due to chest pain, and was started on Imdur at home. Patient's work-up yesterday was negative for any sort of cardiac abnormalities. Patient was she took her Imdur at around 1 PM this afternoon, but she states she cut this in half. She notes that after that, she took her blood pressure a few times, and it seems to be creeping up higher and higher along with her pulse rate, so she became concerned and reports to the ER for chest pain, headache and abnormal blood pressure and heart rate. Patient did get an appoint with Dr. Samuels this for ongoing management and has an appointment on August 06 with cardiology. She is hoping that Dr. Samuels can maybe hasten this appointment so she can have a follow-up sooner. Patient has not had any fevers or chills, cough or shortness of breath. She does state that she has a headache, she did not take any sort of nitro for the chest discomfort, as she was told not to do this while taking the Imdur. She has appreciated a slight amount of edema to her ankles. Headache Pain Score (Numeric/FACES): 10 Chest Pain Score (Numeric/FACES): 9 - Related Data Allergies Allergy/AdvReac Type Severity Reaction Status Date / Time No Known Allergies Allergy Verified 07/09/20 18:24 Home Meds: Home Meds Calcium Carbonate/Vitamin D3 [Cvs Calcium + Vitamin D3 Sftgl] 1 cap PO BID 07/12/14 [History] Cholecalciferol (Vitamin D3) [Vitamin D3] 1 cap PO DAILY 07/12/14 [History] Denosumab [Prolia] 60 mg SQ Q6M 07/12/14 [History] Folic Acid 1 mg PO DAILY 07/12/14 [History] Glucosam/Chond/Collagen/Hyalur [Glucosamine Chondroitin] 1 cap PO DAILY 07/12/14 [History] Levothyroxine [Synthroid] 50 mcg PO DAILY 07/12/14 [History] Multivitamin with Minerals [Multiple Vitamin] 1 tab PO DAILY 07/12/14 [History] [place]-3 Fatty Acids [[place]-3] 1 cap PO BID 07/12/14 [History] Glucosamine/D3/Boswellia Marisol [Osteo Bi-Flex Caplet] 1 tab PO DAILY 10/23/14 [History] Abatacept [Orencia] 500 mg IV ASDIRECTED #0 10/26/14 [Rx] Ondansetron [Zofran ODT] 4 mg PO Q6H PRN #10 tab.dis 10/26/14 [Rx] Acetaminophen [Tylenol Arthritis] 650 mg PO BID 05/18/19 [History] Aspirin 81 mg PO DAILY 07/08/20 [History] Isosorbide Mononitrate [Imdur] 30 mg PO DAILY #30 tab.er 07/08/20 [Rx] Thiamine [Vitamin B-1] 100 mg PO DAILY 07/08/20 [History] Ticagrelor [Brilinta] 90 mg PO BID 07/08/20 [History] atorvaSTATin [Lipitor] 20 mg PO BEDTIME 07/08/20 [History] Past Medical History Gastrointestinal History: Reports: Irritable Bowel Syndrome Genitourinary History: Reports: Urinary Incontinence [employer] History: Reports: Endometriosis Other [employer] History: x3 vag del Musculoskeletal History: Reports: Fracture, RA Other Musculoskeletal History: elbow surgery due to fall Psychiatric History: Reports: Anxiety Endocrine/Metabolic History: Reports: Hypothyroidism, Osteopenia Oncologic (Cancer) History: Reports: Basal Cell Carcinoma, Squamous Cell Carcinoma - Infectious Disease History Infectious Disease History: Reports: Measles - Past Surgical History HEENT Surgical History: Reports: Oral Surgery, Tonsillectomy Cardiovascular Surgical History: Reports: Coronary Artery Stent GI Surgical History: Reports: Appendectomy, Cholecystectomy Female Surgical History: Reports: Hysterectomy, Other (See Below) Musculoskeletal Surgical History: Reports: Arthroscopic Knee, ORIF Oncologic Surgical History: Reports: Other (See Below) Social & Family History - Tobacco Use Tobacco Use Status *Q: Never Tobacco User Second Hand Smoke Exposure: No - Caffeine Use Caffeine Use: Reports: Coffee - Recreational Drug Use Recreational Drug Use: No - Living Situation & Occupation Living situation: Reports: , with Spouse Occupation: Retired [employer] - Review of Systems Review Of Systems: Comprehensive ROS is negative, except as noted in HPI. ED EXAM, GENERAL - Physical Exam Exam: See Below Exam Limited By: No Limitations General Appearance: Alert, WD/WN, No Apparent Distress, Anxious (slight generalized) Respiratory/Chest: No Respiratory Distress, Lungs Clear, Normal Breath Sounds, No Accessory Muscle Use, Chest Non-Tender Cardiovascular: Normal Peripheral Pulses, Regular Rate, Rhythm, No Edema Peripheral Pulses: 2+: Radial (L), Radial (R), Dorsalis Pedis (L), Dorsalis Pedis (R) GI/Abdominal: Normal Bowel Sounds, Soft, Non-Tender, No Distention, No Mass Extremities: Normal Inspection, Normal Capillary Refill Neurological: Alert, Oriented, Normal Cognition, No Motor/Sensory Deficits Psychiatric: Normal Affect, Normal Mood, Anxious (slight generalized) Skin Exam: Warm, Dry, Intact, Normal Color, No Rash #1 Interpretation EKG Date: 07/09/20 Time: 18:27 Rhythm: NSR Rate (Beats/Min): 87 [place]: Normal P-Wave: Present QRS: Normal ST-T: Normal QT: Normal Comparison: No Change EKG Interpretation Comments: No obvious ischemia or acute ST changes noted, reviewed by myself and Dr. Perez. Course - Vital Signs Last Recorded V/S: Last Vital Signs Temp 97 F 07/09/20 18:21 Pulse 93 07/09/20 18:21 Resp 20 07/09/20 18:21 BP 129/69 07/09/20 18:21 Pulse Ox 98 07/09/20 18:21 - Orders/Labs/Meds Orders: Active Orders 24 hr Category Date Time Status EKG 12 Lead [EKG Documentation Completion] [RC] STAT Care 07/09/20 18:24 Active Peripheral IV Care [RC] . DIRECTED Care 07/09/20 18:44 Active Chest 1V Frontal [CR] Stat Exams 07/09/20 18:44 Taken PRO B-TYPE NATRIUR PEPT,BNPPRO [CHEM] Stat Lab 07/09/20 19:00 Received Sodium Chloride 0.9% [Saline Flush] Med 07/09/20 18:44 Active 10 ml FLUSH ASDIRECTED PRN Peripheral IV Insertion Adult [OM.PC] Stat Oth 07/09/20 18:44 Ordered Medication Orders Sodium Chloride (Sodium Chloride 0.9% 10 Ml Syringe) 10 ml FLUSH ASDIRECTED PRN PRN Reason: Keep Vein Open Last Admin: 07/09/20 19:03 Dose: 10 ml Documented by: DAVID Labs: Laboratory Tests 07/09/20 07/09/20 07/09/20 Range/Units 19:00 19:00 19:00 WBC 7.68 (3.98-10.04) K/mm3 RBC 3.96 L (3.98-5.22) M/mm3 Hgb 11.7 (11.2-15.7) gm/dl Hct 36.7 (34.1-44.9) % MCV 92.7 (79.4-94.8) fl MCH 29.5 (25.6-32.2) pg MCHC 31.9 L (32.2-35.5) g/dl RDW Std Deviation 45.0 (36.4-46.3) fL Plt Count 272 (182-369) K/mm3 MPV 8.3 L (9.4-12.3) fl Neut % (Auto) 67.9 (34.0-71.1) % Lymph % (Auto) 21.2 (19.3-51.7) % [place] % (Auto) 7.8 (4.7-12.5) % Eos % (Auto) 2.6 (0.7-5.8) Baso % (Auto) 0.4 (0.1-1.2) % Neut # (Auto) 5.21 (1.56-6.13) K/mm3 Lymph # (Auto) 1.63 (1.18-3.74) K/mm3 [place] # (Auto) 0.60 H (0.24-0.36) K/mm3 Eos # (Auto) 0.20 (0.04-0.36) K/mm3 Baso # (Auto) 0.03 (0.01-0.08) K/mm3 PT 12.7 H (9.7-12.0) SECONDS INR 1.19 APTT 23.7 (21.7-31.4) SECONDS Sodium 140 (136-145) mEq/L Potassium 3.9 (3.5-5.1) mEq/L Chloride 103 (98-107) mEq/L Carbon Dioxide 27 (21-32) mEq/L Anion Gap 13.9 (5-15) BUN 13 (7-18) mg/dL Creatinine 0.8 (0.55-1.02) mg/dL Est Cr Clr Drug Dosing 47.71 mL/min Estimated GFR (MDRD) > 60 (>60) mL/min BUN/Creatinine Ratio 16.3 (14-18) Glucose 112 H (70-99) mg/dL Calcium 8.5 (8.5-10.1) mg/dL Magnesium 2.8 H (1.8-2.4) mg/dL Total Bilirubin 0.3 (0.2-1.0) mg/dL AST 34 (15-37) U/L ALT 47 (14-59) U/L Alkaline Phosphatase 45 L (46-116) U/L Troponin I < 0.017 (0.00-0.056) ng/mL Total Protein 6.5 (6.4-8.2) g/dl Albumin 3.2 L (3.4-5.0) g/dl Globulin 3.3 gm/dL Albumin/Globulin Ratio 1.0 (1-2) Meds: Medications Generic Name Dose Route Start Last Admin Trade Name Freq PRN Reason Stop Dose Admin Sodium Chloride 10 ml 07/09/20 18:44 07/09/20 19:03 Sodium Chloride 0.9% 10 Ml Syringe FLUSH 10 ml ASDIRECTED PRN Administration Keep Vein Open - Re-Assessments/Exams Free Text/Narrative Re-Assessment/Exam: 07/09/20 19:10 Patient presents to the ER for the evaluation of her chest pain. EKG was done at time of triage, there is no acute ST change or ischemic changes noted. This was reviewed by myself and Dr. Perez. 07/09/20 19:59 Laboratory evaluation has resulted, everything is fairly unremarkable, the patient's troponin is negative. Due to her issue starting after she took the Imdur roughly at around 1, it is likely that the negative troponin is a fairly accurate assessment of no cardiac injury. Nonetheless I have placed a call to Dr. Gallardo at [facility] in [place], for consultation. I did discuss the case with Dr. Hsu as well and he did not find any major abnormalities that would need further work-up. I do believe the patient is fairly anxious, causing her heart rate and blood pressure to spike, and she measured it while this was happening causing her to get increasingly anxious. 07/09/20 20:38 I did go over all the lab results with the patient, she feels comfortable going home at this time. She does believe she has a component of anxiety as well. She has been prescribed Xanax, but is afraid to take this as she does not want to get addicted. I did go over the safety of its use, however she states she will just try to use natural ways to calm herself down, this is fine as well. Dr. Gallardo has not called back for consultation; nonetheless I believe the patient is stable at this time, and she does not need to wait. Departure - Departure Time of Disposition: 20:39 Disposition: Home, Self-Care 01 Condition: Good Clinical Impression: Chest discomfort, Anxiety about health Instructions: Nonspecific Chest Pain, Adult, [id number], Managing Anxiety, Adult Referrals: Veda Szymanski MD [Primary Care Provider] - Forms: ED Department Discharge Additional Instructions: You were seen in this ER for your chest discomfort. You had laboratory evaluation, EKG and a chest x-ray done at today's visit, and everything is within normal limits. Your EKG demonstrates no sign of acute heart attack. Please continue all other medications as previously prescribed by your care providers, for ongoing health management. Keep your appoint with Dr. Samuels for this , to see if she can maybe speed up your cardiology referral appointment. Recommend when you take your blood pressure, that you do so in a calm cool fashion, after you have been sitting in a chair for roughly 5 minutes, as this would be the most optimal time to check your blood pressure. It is likely that your blood pressure and heart rate were slightly elevated today, due to some increased anxiety that you are having. Do not hesitate to return to the ER at any time if symptoms change or worsen. Sepsis Event Note (ED) - Evaluation Sepsis Screening Result: No Definite Risk - Focused Exam Vital Signs: Vital Signs Temp Pulse Resp BP Pulse Ox 07/09/20 18:21 97 F 93 20 129/69 98 - My Orders Last 24 Hours: My Active Orders 07/09/20 18:24 EKG 12 Lead [EKG Documentation Completion] [RC] STAT 07/09/20 18:44 Peripheral IV Care [RC] . DIRECTED Chest 1V Frontal [CR] Stat Sodium Chloride 0.9% [Saline Flush] 10 ml FLUSH ASDIRECTED PRN Peripheral IV Insertion Adult [OM.PC] Stat 07/09/20 19:00 PRO B-TYPE NATRIUR PEPT,BNPPRO [CHEM] Stat - Assessment/Plan Last 24 Hours: My Active Orders 07/09/20 18:24 EKG 12 Lead [EKG Documentation Completion] [RC] STAT 07/09/20 18:44 Peripheral IV Care [RC] . DIRECTED Chest 1V Frontal [CR] Stat Sodium Chloride 0.9% [Saline Flush] 10 ml FLUSH ASDIRECTED PRN Peripheral IV Insertion Adult [OM.PC] Stat 07/09/20 19:00 PRO B-TYPE NATRIUR PEPT,BNPPRO [CHEM] Stat
--- NOTE | 2020-07-10 06:38 | CR ---
Chest: Portable view of the chest was obtained. Comparison: Prior chest x-ray of 07/08/20. Heart size and mediastinum are normal. Scoliosis is noted within the spine with slight degenerative change. Lungs are clear with no acute parenchymal change. Osteopenia is present. Impression: 1. Findings as noted above. 2. Nothing acute is seen on portable chest x-ray. Diagnostic code #2
== END 2020-07-09 21:07 | disposition home or self-care (01) ==
LOC: JD.ED 18:12
DX: F41.9 Anxiety disorder, unspecified (principal); E03.9 Hypothyroidism, unspecified; Z79.899 Other long term (current) drug therapy; M06.9 Rheumatoid arthritis, unspecified; Z79.82 Long term (current) use of aspirin
CPT/HCPCS: 36415; 71045; 71045-26; 80053; 83735; 83880; 84484; 85025; 85610; 85730; 93005; 93010; 99284; 99285-25

== ENCOUNTER 2020-07-22 09:17 | Emergency (ER) | payer MEDICARE, BC ==
[2020-07-22 09:28] VITALS: BP 110/72; PULSE 99
--- NOTE | 2020-07-22 09:42 | EDM.PDOC ---
ED HPI GENERAL MEDICAL PROBLEM - General Chief Complaint: Chest Pain Stated Complaint: CHEST PAIN Time Seen by Provider: 07/22/20 09:40 Source of Information: Reports: Patient History Limitations: Reports: No Limitations - History of Present Illness INITIAL COMMENTS - FREE TEXT/NARRATIVE: 75-year-old female presents to the ED for evaluation of left precordial chest pain that she has had for the last 30 hours. She awoke with chest pain early yesterday morning and it has stayed pretty constant since that time. It is made worse slightly by deep breathing. She appreciates chest wall tenderness to touch. Of concern is that she had 1 coronary artery stent placed on June 29 while in [place]. No pre-existing cardiac damage or myocardial infarction. She has been having chest pains intermittently since that time. Of note patient has rheumatoid arthritis for greater than 30 years. She is getting immunotherapy once monthly and she just completed this on July 20. It usually is well- tolerated without causing chest pain. Onset: Sudden Onset Date: 07/21/20 Onset Time: 05:00 (Awoke with left precordial chest discomfort yesterday morning about 5:00.) Duration: Hour(s):, Constant Location: Reports: Chest (Left precordial chest discomfort made worse by deep breathing. Associated feeling of shortness of breath.) Quality: Reports: Ache, Pressure Severity: Mild Improves with: Reports: Rest Worsens with: Reports: Movement (Worse with coughing deep breathing) Context: Denies: Activity, Exercise, Lifting, Sick Contact, Trauma, Other Associated Symptoms: Reports: Chest Pain (Nonproductive), Cough, Malaise, Shortness of Breath. Denies: No Other Symptoms, Confusion ( left precordial chest pain for 30 hours. See history of present illness), cough w sputum, Diaphoresis, Fever/Chills, Headaches, Loss of Appetite, Nausea/Vomiting, Rash, Seizure, Syncope, Weakness Treatments LABOR RELATIONS SPECIALIST: Reports: Acetaminophen (650 mg twice daily.) Chest Pain Score (Numeric/FACES): 9 - Related Data Allergies Allergy/AdvReac Type Severity Reaction Status Date / Time No Known Allergies Allergy Verified 07/22/20 09:29 Home Meds: Home Meds Calcium Carbonate/Vitamin D3 [Cvs Calcium + Vitamin D3 Sftgl] 1 cap PO BID 07/12/14 [History] Cholecalciferol (Vitamin D3) [Vitamin D3] 1 cap PO DAILY 07/12/14 [History] Denosumab [Prolia] 60 mg SQ Q6M 07/12/14 [History] Levothyroxine [Synthroid] 50 mcg PO DAILY 07/12/14 [History] Glucosamine/D3/Boswellia Marisol [Osteo Bi-Flex Caplet] 1 tab PO DAILY 10/23/14 [History] Abatacept [Orencia] 500 mg IV ASDIRECTED #0 10/26/14 [Rx] Acetaminophen [Tylenol Arthritis] 650 mg PO BID 05/18/19 [History] Aspirin 81 mg PO DAILY 07/08/20 [History] Isosorbide Mononitrate [Imdur] 30 mg PO DAILY #30 tab.er 07/08/20 [Rx] Thiamine [Vitamin B-1] 100 mg PO DAILY 07/08/20 [History] Ticagrelor [Brilinta] 90 mg PO BID 07/08/20 [History] atorvaSTATin [Lipitor] 40 mg PO BEDTIME 07/08/20 [History] Clopidogrel Bisulfate [Plavix] 75 mg PO DAILY #30 tablet 07/22/20 [Rx] Famotidine [Pepcid] 20 mg PO BID 07/22/20 [History] Fish Oil/[place]-3 Fatty Acids [Fish Oil 1,000 MG] 1 tab PO DAILY 07/22/20 [History] Latanoprost/Pf [Latanoprost 0.005% Eye Drop] 1 drop EYEBOTH QPM 07/22/20 [History] Melatonin 3 mg PO QPM 07/22/20 [History] Metoprolol Tartrate 12.5 mg PO DAILY 07/22/20 [History] Non-Formulary Medication [NF Drug] 1 dose TOP QPM 07/22/20 [History] Non-Formulary Medication [NF Drug] 1 tab PO ASDIRECTED 07/22/20 [History] Sennosides [Senna] 8.6 mg PO DAILY 07/22/20 [History] Thiamine [Vitamin B-1] 100 mg PO DAILY 07/22/20 [History] Zinc 20 mg PO DAILY 07/22/20 [History] buPROPion HCL [Bupropion Xl] 150 mg PO DAILY 07/22/20 [History] polyethylene glycoL 3350 [MiraLAX] 17 g PO DAILY 07/22/20 [History] predniSONE [Prednisone] 20 mg PO ASDIRECTED #15 tablet 07/22/20 [Rx] Past Medical History Gastrointestinal History: Reports: Irritable Bowel Syndrome Genitourinary History: Reports: Urinary Incontinence 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 Psychiatric History: Reports: Anxiety Endocrine/Metabolic History: Reports: Hypothyroidism, Osteopenia Oncologic (Cancer) History: Reports: Basal Cell Carcinoma, Squamous Cell Carcinoma - Infectious Disease History Infectious Disease History: Reports: Measles - Past Surgical History HEENT Surgical History: Reports: Oral Surgery, Tonsillectomy Cardiovascular Surgical History: Reports: Coronary Artery Stent GI Surgical History: Reports: Appendectomy, Cholecystectomy Female Surgical History: Reports: Hysterectomy, Other (See Below) Musculoskeletal Surgical History: Reports: Arthroscopic Knee, ORIF Oncologic Surgical History: Reports: Other (See Below) Social & Family History - Tobacco Use Tobacco Use Status *Q: Never Tobacco User Second Hand Smoke Exposure: No - Caffeine Use Caffeine Use: Reports: Coffee - Recreational Drug Use Recreational Drug Use: No - Living Situation & Occupation Living situation: Reports: , with Spouse Occupation: Retired ED ROS GENERAL - Review of Systems Review Of Systems: See Below Constitutional: Reports: Malaise, Weakness, Fatigue, Decreased Appetite. Denies: Fever, Chills HEENT: Reports: No Symptoms Respiratory: Reports: Shortness of Breath. Denies: Wheezing, Pleuritic Chest Pain, Cough, Sputum, Hemoptysis, Other Cardiovascular: Reports: Chest Pain, Dyspnea on Exertion (Occasional.), Lightheadedness. Denies: Blood Pressure Problem (Left precordial chest pain.), Claudication, Orthopnea Endocrine: Reports: Fatigue GI/Abdominal: Reports: Constipation (Rare problems with constipation.) : Reports: Frequency, Incontinence (Occasional urgency incontinence.), Urgency Musculoskeletal: Reports: Neck Pain (.), Shoulder Pain (Quite bad pain in her right shoulder at this time), Back Pain, Joint Pain, Other (Patient has chronic rheumatoid arthritis particular affecting her hands feet knees shoulders.) Skin: Reports: Bruising (Appreciates easy bruising as she is on Brilinta 90 mg daily post coronary artery stent placement) Neurological: Reports: No Symptoms Psychiatric: Reports: Anxiety (Mild) Hematologic/Lymphatic: Reports: No Symptoms Immunologic: Reports: No Symptoms ED EXAM, GENERAL - Physical Exam Exam: See Below Exam Limited By: No Limitations General Appearance: Alert, WD/WN, No Apparent Distress, Thin, Other (Fragile in appearance all ribs are easily visible. Temperature is 36.3 with a heart rate of 99 and sinus. Respiratory to 20 with O2 sats of 99% room air BP 110/72.) Eye Exam: Bilateral Eye: Normal Inspection (No blepharal pallor or scleral icterus.), PERRL Throat/Mouth: Normal Inspection, Normal Lips, Normal Oropharynx Head: Atraumatic, Normocephalic Neck: Normal Inspection, Limited Range of Motion, Tender Lateral. No: Carotid Bruit, Lymphadenopathy (L), Lymphadenopathy (R) Respiratory/Chest: No Respiratory Distress, Lungs Clear, Normal Breath Sounds, No Accessory Muscle Use, Other (Marked chest wall tenderness on palpation of ribs 3 4 and 5 left precordial chest. Particular a rib #5.) Cardiovascular: Normal Peripheral Pulses, Regular Rate, Rhythm, No Edema, No Gallop, No Murmur, No Rub Peripheral Pulses: 2+: Carotid (L), Carotid (R), Posterior Tibial (L), Posterior Tibial (R), Dorsalis Pedis (L), Dorsalis Pedis (R) GI/Abdominal: Normal Bowel Sounds, Soft, Non-Tender, No Organomegaly, No Mass, Pelvis Stable Back Exam: Decreased Range of Motion (Mild kyphosis thoracic spine decreased range of motion lumbar spine), Other. No: Normal Inspection (All spinous processes are easily visible.) Extremities: No Pedal Edema, Other (Surgical scars both proximal forearms at the elbow. She relates she fell forwards fracturing both illness requiring surgical repair several years ago. She has stigmata of rheumatoid arthritis affecting her hands they are staying almost in a closed fist position. Marked inflammation of all of the MCP) Neurological: Alert, Oriented, CN II-XII Intact, Normal Cognition Psychiatric: Normal Affect, Normal Mood Skin Exam: Warm, Dry, Intact, Normal Color, Other (Patient does have mild bilateral venous stasis dermatitis lower legs without edema) #1 Interpretation EKG Date: 07/22/20 Time: 09:26 Rhythm: NSR Rate (Beats/Min): 96 Kimberly: Normal P-Wave: Enlarged (Consider left atrial hypertrophy.) QRS: Other (Mild early R wave transition likely due to lead placement) ST-T: Other (Nonspecific T wave flattening aVL) QT: Normal EKG Interpretation Comments: Borderline ECG. No signs of ischemia. Course - Vital Signs Last Recorded V/S: Last Vital Signs Temp 36.3 C 07/22/20 09:27 Pulse 99 07/22/20 09:27 Resp 20 07/22/20 09:27 BP 110/72 07/22/20 09:27 Pulse Ox 99 07/22/20 09:27 - Orders/Labs/Meds Orders: Active Orders 24 hr Category Date Time Status Chest 1V Frontal [CR] Stat Exams 07/22/20 09:55 Taken Labs: Laboratory Tests 07/22/20 07/22/20 07/22/20 Range/Units 09:25 09:25 09:25 WBC 7.92 (3.98-10.04) K/mm3 RBC 4.38 (3.98-5.22) M/mm3 Hgb 13.1 (11.2-15.7) gm/dl Hct 40.8 (34.1-44.9) % MCV 93.2 (79.4-94.8) fl MCH 29.9 (25.6-32.2) pg MCHC 32.1 L (32.2-35.5) g/dl RDW Std Deviation 45.6 (36.4-46.3) fL Plt Count 255 (182-369) K/mm3 MPV 8.8 L (9.4-12.3) fl Neut % (Auto) 67.5 (34.0-71.1) % Lymph % (Auto) 21.5 (19.3-51.7) % [place] % (Auto) 9.1 (4.7-12.5) % Eos % (Auto) 1.5 (0.7-5.8) Baso % (Auto) 0.4 (0.1-1.2) % Neut # (Auto) 5.35 (1.56-6.13) K/mm3 Lymph # (Auto) 1.70 (1.18-3.74) K/mm3 [place] # (Auto) 0.72 H (0.24-0.36) K/mm3 Eos # (Auto) 0.12 (0.04-0.36) K/mm3 Baso # (Auto) 0.03 (0.01-0.08) K/mm3 PT 11.9 (9.7-12.0) SECONDS INR 1.11 APTT 24.6 (21.7-31.4) SECONDS Sodium 139 (136-145) mEq/L Potassium 3.9 (3.5-5.1) mEq/L Chloride 103 (98-107) mEq/L Carbon Dioxide 28 (21-32) mEq/L Anion Gap 11.9 (5-15) BUN 11 (7-18) mg/dL Creatinine 0.9 (0.55-1.02) mg/dL Est Cr Clr Drug Dosing 42.41 mL/min Estimated GFR (MDRD) > 60 (>60) mL/min BUN/Creatinine Ratio 12.2 L (14-18) Glucose 102 H (70-99) mg/dL Calcium 8.5 (8.5-10.1) mg/dL Magnesium 2.0 (1.8-2.4) mg/dL Total Bilirubin 0.9 (0.2-1.0) mg/dL AST 30 (15-37) U/L ALT 43 (14-59) U/L Alkaline Phosphatase 48 (46-116) U/L CK-MB (CK-2) 2.3 (0-3.6) ng/ml Troponin I < 0.017 (0.00-0.056) ng/mL NT-Pro-B Natriuret Pep (0-125) pg/mL Total Protein 6.7 (6.4-8.2) g/dl Albumin 3.4 (3.4-5.0) g/dl Globulin 3.3 gm/dL Albumin/Globulin Ratio 1.0 (1-2) 07/22/20 Range/Units 09:25 WBC (3.98-10.04) K/mm3 RBC (3.98-5.22) M/mm3 Hgb (11.2-15.7) gm/dl Hct (34.1-44.9) % MCV (79.4-94.8) fl MCH (25.6-32.2) pg MCHC (32.2-35.5) g/dl RDW Std Deviation (36.4-46.3) fL Plt Count (182-369) K/mm3 MPV (9.4-12.3) fl Neut % (Auto) (34.0-71.1) % Lymph % (Auto) (19.3-51.7) % [place] % (Auto) (4.7-12.5) % Eos % (Auto) (0.7-5.8) Baso % (Auto) (0.1-1.2) % Neut # (Auto) (1.56-6.13) K/mm3 Lymph # (Auto) (1.18-3.74) K/mm3 [place] # (Auto) (0.24-0.36) K/mm3 Eos # (Auto) (0.04-0.36) K/mm3 Baso # (Auto) (0.01-0.08) K/mm3 PT (9.7-12.0) SECONDS INR APTT (21.7-31.4) SECONDS Sodium (136-145) mEq/L Potassium (3.5-5.1) mEq/L Chloride (98-107) mEq/L Carbon Dioxide (21-32) mEq/L Anion Gap (5-15) BUN (7-18) mg/dL Creatinine (0.55-1.02) mg/dL Est Cr Clr Drug Dosing mL/min Estimated GFR (MDRD) (>60) mL/min BUN/Creatinine Ratio (14-18) Glucose (70-99) mg/dL Calcium (8.5-10.1) mg/dL Magnesium (1.8-2.4) mg/dL Total Bilirubin (0.2-1.0) mg/dL AST (15-37) U/L ALT (14-59) U/L Alkaline Phosphatase (46-116) U/L CK-MB (CK-2) (0-3.6) ng/ml Troponin I (0.00-0.056) ng/mL NT-Pro-B Natriuret Pep 81 (0-125) pg/mL Total Protein (6.4-8.2) g/dl Albumin (3.4-5.0) g/dl Globulin gm/dL Albumin/Globulin Ratio (1-2) - Radiology Interpretation Free Text/Narrative:: 75-year-old female presents to the ED for evaluation of left precordial chest pain that she has had for about 32 hours. She had a stent placed in she believes left coronary artery in [place] on June 29. There was no pre-existing myocardial infarction or myocardial damage. She had a 70% blockage on angiography. ECG done by triage nurse shows sinus rhythm at 98/min with no signs of ischemia. Examination reveals a few crackles both posterior lung field suggesting mild pulmonary fibrosis. No JVD and no edema. Marked chest wall tenderness on palpation of the left precordium particularly ribs 3 4 and 5 with the fifth being the worst. Suspect chest wall pain is source of her current chest pain. Routine labs including cardiac markers to be done. 1 view chest x-ray as well. - Re-Assessments/Exams Free Text/Narrative Re-Assessment/Exam: 07/22/20 10:59 White count is 7.92 with differential showing 67.5% neutrophils on the auto differential. Hemoglobin is 13.1 with hematocrit of 40.8. Platelet count 255,000. PT is 11.9 with the INR of 1.11. PTT is 24.6. Sodium is 139 with a potassium of 3.9. Chloride is 103 with a bicarb of 28. Anion gap is 11.9. BUN is 11 with a creatinine of 0.9 and a GFR greater than 60. Glucose is 102. Calcium is 8.5. Magnesium is 2.0. Liver function is normal. CK-MB fraction is 2.3. Troponin I is less than 0.017. BNP is 81. Total protein is 6.7 with an albumin fraction of 3.4 . Chest x-ray done portably reveals mildly hyperinflated lung nelson bilaterally. Cardiac silhouette is essentially normal. There is evidence of scoliosis of the thoracic spine. Lung parenchyma revealed mild fibrosis lower lobes most notable on the right side. No pulmonary vascular distention identified .No pneumothorax. No pleural effusion. 07/22/20 11:13 I have discussed the findings with the patient and her . No evidence of heart related illness. Current pain that she is experiencing is chest wall in etiology likely due to osteoporosis with calcium being leached from underneath the periosteum of the ribs left chest wall. She is very petite and I would anticipate that she has significant osteopenia/osteoporosis. Suggest DEXA scan in the future. The meantime will place her on prednisone 20 mg twice daily with breakfast and supper for 5 days and then once in the morning only for 5 more days to help relieve chest wall pain. She cannot take anti- inflammatories due to being on Brilinta. We discussed the cost of Brilinta it is $1200 a month and $700 plus with insurance. She wishes to be changed to Plavix and therefore I would be willing to do this for her. Prescription will be written for Plavix 150 mg once daily to be started after her Brilinta medication is finished. Departure - Departure Time of Disposition: 11:15 Disposition: Home, Self-Care 01 Reason for Transfer *Q: Other Condition: Fair Clinical Impression: Non-cardiac chest pain, Anterior chest wall pain, Rheumatoid arthritis Prescriptions: Clopidogrel Bisulfate [Plavix] 75 mg PO DAILY #30 tablet predniSONE [Prednisone] 20 mg PO ASDIRECTED #15 tablet Instructions: Arthritis, [id number], Chest Wall Pain, [id number], Nonspecific Chest Pain, Adult, [id number] Referrals: Veda Szymanski MD [Primary Care Provider] - Forms: ED Department Discharge Additional Instructions: Evaluation in the emergency room today in regards to left precordial chest pain for about 34 hours prior to coming into the ED. Concern for heart related illness since you have had recent stent placement in [place] on June 29 of this year. Examination revealed exquisite pain on palpation of the ribs in the mid clavicular line left side particular ribs 4,5 and 6 causing exquisite chest wall pain. Chest x-ray revealed mild hyperinflation of the lungs with no significant evidence of rheumatoid lung. Lab test revealed no evidence of heart related illness and no signs of heart failure. Current chest pain is that of chest wall pain due to inflammation of the lining of the ribs of the chest wall. I would suggest getting a DEXA scan done sometime within the next few months. Strongly suspect osteoporosis. Decision to treat with prednisone 20 mg morning and suppertime for 5 days and then once in the morning only for another 5 days to relieve inflammation in the chest wall. Continue to use Tylenol for pain as ne eded. As we discussed you would like to switch from Brilinta to Plavix as an antiplatelet inhibitor due to cost. Since you do not have a local care provider I have written his prescription for Plavix 75 mg to be taken once daily after you work finished with your current prescription for Brilinta. Suggest follow- up with a local physician such as Dr. Veda Conrad or Dr. Tristan Kim for ongoing care. Sepsis Event Note (ED) - Evaluation Sepsis Screening Result: No Definite Risk - Focused Exam Vital Signs: Vital Signs Temp Pulse Resp BP Pulse Ox 07/22/20 09:27 36.3 C 99 20 110/72 99 - My Orders Last 24 Hours: My Active Orders 07/22/20 09:55 Chest 1V Frontal [CR] Stat - Assessment/Plan Last 24 Hours: My Active Orders 07/22/20 09:55 Chest 1V Frontal [CR] Stat
--- NOTE | 2020-07-22 17:04 | CR ---
Chest: Portable view of the chest was obtained. Comparison: Prior chest x-ray of 07/09/20. Findings: Scoliosis is noted within the spine. Lung markings are mildly increased which appear chronic. No acute parenchymal change is seen. Bony structures are also slightly osteopenic. Impression: 1. Stable findings as noted above. 2. Nothing acute is appreciated. Diagnostic code #2
== END 2020-07-22 11:47 | disposition home or self-care (01) ==
LOC: JD.ED 09:17
DX: R07.89 Other chest pain (principal); M06.9 Rheumatoid arthritis, unspecified; E03.9 Hypothyroidism, unspecified; Z79.82 Long term (current) use of aspirin; Z79.899 Other long term (current) drug therapy; Z79.02 Long term (current) use of antithrombotics/antiplatelets; R06.02 Shortness of breath
CPT/HCPCS: 36415; 71045; 71045-26; 80053; 82553; 83735; 83880; 84484; 85025; 85610; 85730; 93005; 93010; 99284; 99285-25

== ENCOUNTER 2020-10-21 14:52 | Emergency (ER) | payer MEDICARE, BC ==
[2020-10-21 15:24] VITALS: BP 101/56; PULSE 79
--- NOTE | 2020-10-21 16:06 | EDM.PDOC ---
ED HPI GENERAL MEDICAL PROBLEM - General Chief Complaint: Lower Extremity Injury/Pain Stated Complaint: LEG PAIN Time Seen by Provider: 10/21/20 15:02 Source of Information: Reports: Patient, RN Notes Reviewed History Limitations: Reports: No Limitations - History of Present Illness INITIAL COMMENTS - FREE TEXT/NARRATIVE: Patient is a 75-year-old female who presents to the ER for evaluation of a bleeding leg. Patient has a history of varicose veins, and noted 1 to have been irritated earlier today when she was changing from jeans to capris. The scab fell off, and the blood started gushing all over. She was seen in clinic earlier this week by her provider, Dr. Samuels, and was told to put Bactroban on it, with some bandages, and that should take care of it. Patient is not feeling dizzy or lightheaded at all, she states that her legs burn at times, but the whole area itself is not painful. When she presents to the ER, the wound is not bleeding. A pressure bandage was placed by triage staff. Patient denies any other sick-like symptoms, fever/chills, cough/shortness of breath, nausea/vomiting/diarrhea. 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 PLANT OPERATOR: Reports: Other (see below) Other 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 PLANT OPERATOR: pressure Left Lower Leg Pain Score (Numeric/FACES): 7 - Related Data Allergies Allergy/AdvReac Type Severity Reaction Status Date / Time No Known Allergies Allergy Verified 07/22/20 09:29 Home Meds: Home Meds Calcium Carbonate/Vitamin D3 [Cvs Calcium + Vitamin D3 Sftgl] 1 cap PO BID 07/12/14 [History] Cholecalciferol (Vitamin D3) [Vitamin D3] 1 cap PO DAILY 07/12/14 [History] Denosumab [Prolia] 60 mg SQ Q6M 07/12/14 [History] Levothyroxine [Synthroid] 50 mcg PO DAILY 07/12/14 [History] Glucosamine/D3/Boswellia Marisol [Osteo Bi-Flex Caplet] 1 tab PO DAILY 10/23/14 [History] Abatacept [Orencia] 500 mg IV ASDIRECTED #0 10/26/14 [Rx] Acetaminophen [Tylenol Arthritis] 650 mg PO BID 05/18/19 [History] Aspirin 81 mg PO DAILY 07/08/20 [History] Isosorbide Mononitrate [Imdur] 30 mg PO DAILY #30 tab.er 07/08/20 [Rx] Thiamine [Vitamin B-1] 100 mg PO DAILY 07/08/20 [History] Ticagrelor [Brilinta] 90 mg PO BID 07/08/20 [History] atorvaSTATin [Lipitor] 40 mg PO BEDTIME 07/08/20 [History] Clopidogrel Bisulfate [Plavix] 75 mg PO DAILY #30 tablet 07/22/20 [Rx] Famotidine [Pepcid] 20 mg PO BID 07/22/20 [History] Fish Oil/[place]-3 Fatty Acids [Fish Oil 1,000 MG] 1 tab PO DAILY 07/22/20 [History] Latanoprost/Pf [Latanoprost 0.005% Eye Drop] 1 drop EYEBOTH QPM 07/22/20 [History] Melatonin 3 mg PO QPM 07/22/20 [History] Metoprolol Tartrate 12.5 mg PO DAILY 07/22/20 [History] Non-Formulary Medication [NF Drug] 1 dose TOP QPM 07/22/20 [History] Non-Formulary Medication [NF Drug] 1 tab PO ASDIRECTED 07/22/20 [History] Sennosides [Senna] 8.6 mg PO DAILY 07/22/20 [History] Thiamine [Vitamin B-1] 100 mg PO DAILY 07/22/20 [History] Zinc 20 mg PO DAILY 07/22/20 [History] buPROPion HCL [Bupropion Xl] 150 mg PO DAILY 07/22/20 [History] polyethylene glycoL 3350 [MiraLAX] 17 g PO DAILY 07/22/20 [History] predniSONE [Prednisone] 20 mg PO ASDIRECTED #15 tablet 07/22/20 [Rx] Past Medical History Gastrointestinal History: Reports: Irritable Bowel Syndrome Genitourinary History: Reports: Urinary Incontinence 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 Psychiatric History: Reports: Anxiety Endocrine/Metabolic History: Reports: Hypothyroidism, Osteopenia Oncologic (Cancer) History: Reports: Basal Cell Carcinoma, Squamous Cell Carcinoma - Infectious Disease History Infectious Disease History: Reports: Chicken Pox, Measles, Shingles - Past Surgical History HEENT Surgical History: Reports: Oral Surgery, Tonsillectomy Cardiovascular Surgical History: Reports: Coronary Artery Stent GI Surgical History: Reports: Appendectomy, Cholecystectomy Female Surgical History: Reports: Hysterectomy Musculoskeletal Surgical History: Reports: Arthroscopic Knee, ORIF Oncologic Surgical History: Reports: Other (See Below) Social & Family History - Tobacco Use Tobacco Use Status *Q: Never Tobacco User - Caffeine Use Caffeine Use: Reports: Coffee, Soda - Recreational Drug Use Recreational Drug Use: No - Living Situation & Occupation Living situation: Reports: , with Spouse Occupation: Retired Review of Systems - Review of Systems Review Of Systems: Comprehensive ROS is negative, except as noted in HPI. ED EXAM, GENERAL - Physical Exam Exam: See Below Exam Limited By: No Limitations General Appearance: Alert, WD/WN, No Apparent Distress Respiratory/Chest: No Respiratory Distress, Lungs Clear, Normal Breath Sounds, No Accessory Muscle Use, Chest Non-Tender Cardiovascular: Normal Peripheral Pulses, Regular Rate, Rhythm, No Edema Extremities: Normal Range of Motion, Normal Capillary Refill, Other (1 area on the left lateral lower leg, that is scabbed over at this time. She states that this was the area that was bleeding. She does have venous stasis changes on bilateral lower extremities) Neurological: Alert, Oriented, Normal Cognition, No Motor/Sensory Deficits Psychiatric: Normal Affect, Normal Mood Skin Exam: Warm, Dry, Intact, Normal Color, No Rash Course - Vital Signs Last Recorded V/S: Last Vital Signs Temp 97.1 F 10/21/20 15:15 Pulse 79 10/21/20 15:15 Resp 20 10/21/20 15:15 BP 101/56 L 10/21/20 15:15 Pulse Ox 97 10/21/20 15:15 - Re-Assessments/Exams Free Text/Narrative Re-Assessment/Exam: 10/21/20 16:04 Patient presents to the ER for an area on her left lower leg, that was bleeding at home. We did place a quick clot dressing to the area, along with a pressure bandage type dressing, and will have her follow-up with her primary care provider this week for ongoing management. I did tell her to keep the dressing in place for roughly 24 hours. If the area seems to be bleeding, when she goes home, she may return to the ER for further management. Departure - Departure Time of Disposition: 16:05 Disposition: Home, Self-Care 01 Condition: Good Clinical Impression: Bleeding from varicose veins of left lower extremity - Discharge Information *PRESCRIPTION DRUG MONITORING PROGRAM REVIEWED*: No *COPY OF PRESCRIPTION DRUG MONITORING REPORT IN PATIENT IRAIS: No Instructions: Varicose Veins Referrals: Veda Szymanski MD [Primary Care Provider] - Additional Instructions: You were evaluated in the ER today for the bleeding on your left lower leg. This did seem to be coming from a varicose vein, that had ruptured. A quick clot dressing was placed to the area of concern, and a pressure bandage was applied over that. Please keep this in place for 24 to 48 hours, call your primary care provider, tomorrow morning for ongoing management. Please ask your primary care provider, if a referral to a varicose vein specialist would be in your best interest, for ongoing management of your varicose veins. Do not hesitate to return to the ER at any time if symptoms change or worsen. Sepsis Event Note (ED) - Focused Exam Vital Signs: Vital Signs Temp Pulse Resp BP Pulse Ox 10/21/20 15:15 97.1 F 79 20 101/56 L 97
== END 2020-10-21 16:36 | disposition home or self-care (01) ==
LOC: JD.ED 14:52
DX: I83.892 Varicose veins of left lower extremity with other complications (principal); M06.9 Rheumatoid arthritis, unspecified; E03.9 Hypothyroidism, unspecified; Z79.82 Long term (current) use of aspirin; Z79.02 Long term (current) use of antithrombotics/antiplatelets; Z79.899 Other long term (current) drug therapy
CPT/HCPCS: 99283

== ENCOUNTER 2020-11-03 01:17 | Emergency (ER) | payer MEDICARE, BC ==
--- NOTE | 2020-11-03 03:12 | EDM.PDOC ---
ED HPI GENERAL MEDICAL PROBLEM - General Chief Complaint: Cardiovascular Problem Stated Complaint: CHEST PAIN Time Seen by Provider: 11/03/20 02:41 Source of Information: Reports: Patient, Family () History Limitations: Reports: No Limitations - History of Present Illness INITIAL COMMENTS - FREE TEXT/NARRATIVE: Mrs. Malave is a very pleasant 75-year-old woman who now presents to the ED after developing sudden-onset left chest pressure, a heaviness sensation, along with rapid palpitations at 00:23, after she got up to use the restroom. She states that she felt slightly nauseated and hot, but denies having associated dyspnea, diaphoresis, or sense of impending doom. The patient underwent a coronary angiogram this past June, finding an approximately 75% lesion that was treated with a single coronary stent. She states that she was also found to have mild disease elsewhere. The patient had not suffered an MS. The patient was then started on Plavix, however, she discontinued the Plavix on 09/25/2020, in anticipation of undergoing a biopsy of a lesion on her leg on 11/02/2020. The biopsy wound up not occurring. The patient then resumed her Plavix on 11/02/2020 at 14:00. When the patient experienced the left chest pressure and rapid palpitations this morning, she took 1 tablet of Plavix and 6 aspirin 81 mg, along with 2 sublingual nitroglycerin, around 00:50. She states that her symptoms did not improve, therefore she came to the ED. Here in the ED, the patient is found to be hemodynamically stable, afebrile, saturating 97% on room air. She states that she has slight chest heaviness. She appears to be comfortable, in no acute distress. Prior to this morning, the patient denies having a recent fever, chills, sore throat, ear pain, nasal or sinus congestion, cough, dyspnea, chest pain, palpitations, nausea, vomiting, constipation, diarrhea, abdominal pain, urinary symptoms, recent weight gain or weight loss, recent bloody bowel movements or black bowel movements, recent joint aches, headaches, or rashes. The patient's PCP is Dr. Veda Samuels. Her Fighter Pilot is Dr. Elver Gallardo, at [facility]. Her Nursing Informatics Specialist is Dr. Ty Hahn. She has received 2 COVID vaccinations. Chest Pain Score (Numeric/FACES): 3 - Related Data Allergies Allergy/AdvReac Type Severity Reaction Status Date / Time No Known Allergies Allergy Verified 11/03/20 01:27 Home Meds: Home Meds Calcium Carbonate/Vitamin D3 [Cvs Calcium + Vitamin D3 Sftgl] 1 cap PO BID 07/12/14 [History] Cholecalciferol (Vitamin D3) [Vitamin D3] 1 cap PO DAILY 07/12/14 [History] Denosumab [Prolia] 60 mg SQ Q6M 07/12/14 [History] Levothyroxine [Synthroid] 50 mcg PO DAILY 07/12/14 [History] Glucosamine/D3/Boswellia Marisol [Osteo Bi-Flex Caplet] 1 tab PO DAILY 10/23/14 [History] Abatacept [Orencia] 500 mg IV ASDIRECTED #0 10/26/14 [Rx] Acetaminophen [Tylenol Arthritis] 650 mg PO BID 05/18/19 [History] Aspirin 81 mg PO DAILY 07/08/20 [History] Isosorbide Mononitrate [Imdur] 30 mg PO DAILY #30 tab.er 07/08/20 [Rx] Thiamine [Vitamin B-1] 100 mg PO DAILY 07/08/20 [History] Ticagrelor [Brilinta] 90 mg PO BID 07/08/20 [History] atorvaSTATin [Lipitor] 40 mg PO BEDTIME 07/08/20 [History] Clopidogrel Bisulfate [Plavix] 75 mg PO DAILY #30 tablet 07/22/20 [Rx] Famotidine [Pepcid] 20 mg PO BID 07/22/20 [History] Fish Oil/[place]-3 Fatty Acids [Fish Oil 1,000 MG] 1 tab PO DAILY 07/22/20 [History] Latanoprost/Pf [Latanoprost 0.005% Eye Drop] 1 drop EYEBOTH QPM 07/22/20 [History] Melatonin 3 mg PO QPM 07/22/20 [History] Metoprolol Tartrate 12.5 mg PO DAILY 07/22/20 [History] Non-Formulary Medication [NF Drug] 1 dose TOP QPM 07/22/20 [History] Non-Formulary Medication [NF Drug] 1 tab PO ASDIRECTED 07/22/20 [History] Sennosides [Senna] 8.6 mg PO DAILY 07/22/20 [History] Thiamine [Vitamin B-1] 100 mg PO DAILY 07/22/20 [History] Zinc 20 mg PO DAILY 07/22/20 [History] buPROPion HCL [Bupropion Xl] 150 mg PO DAILY 07/22/20 [History] polyethylene glycoL 3350 [MiraLAX] 17 g PO DAILY 07/22/20 [History] predniSONE [Prednisone] 20 mg PO ASDIRECTED #15 tablet 07/22/20 [Rx] Past Medical History Gastrointestinal History: Reports: Irritable Bowel Syndrome Genitourinary History: Reports: Urinary Incontinence (stress incontinence) 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: Reports: Endometriosis Musculoskeletal History: Reports: Fracture (bilateral elbows), RA, Other (See Below) (Osteopenia) Psychiatric History: Reports: Anxiety (untreated) Endocrine/Metabolic History: Reports: Hypothyroidism, Osteopenia Oncologic (Cancer) History: Reports: Basal Cell Carcinoma (scalp), Squamous Cell Carcinoma (right johnson) - Infectious Disease History Infectious Disease History: Reports: Chicken Pox, Measles, Shingles - Past Surgical History HEENT Surgical History: Reports: Oral Surgery (dental extractions), Tonsi llectomy Cardiovascular Surgical History: Reports: Coronary Artery Stent (x 1, June 2020), Other (See Below) (Coronary angiogram x 1, June 2020) GI Surgical History: Reports: Appendectomy, Cholecystectomy (2002 or 2003) Female Surgical History: Reports: Hysterectomy (complete), Other (See Below) (Exploratory laparoscopy for endometriosis x 2) Musculoskeletal Surgical History: Reports: Arthroscopic Knee (right), ORIF (bilateral elbows) Oncologic Surgical History: Reports: Other (See Below) (BCC excised from scalp. SCC excised from right leg.) Social & Family History - Tobacco Use Tobacco Use Status *Q: Never Tobacco User - Caffeine Use Caffeine Use: Reports: None - Alcohol Use Alcohol Use History: No - Recreational Drug Use Recreational Drug Use: No - Living Situation & Occupation Living situation: Reports: , with Spouse Occupation: Retired ED ROS GENERAL - Review of Systems Review Of Systems: Comprehensive ROS is negative, except as noted in HPI. ED EXAM, GENERAL - Physical Exam Exam: See Below Exam Limited By: No Limitations General Appearance: Alert, No Apparent Distress, Thin Eye Exam: Bilateral Eye: EOMI, Normal Inspection Ears: Normal External Exam, Hearing Grossly Normal Nose: Normal Inspection Throat/Mouth: Normal Inspection, Normal Lips, Normal Voice, No Airway Compromise Head: Atraumatic, Normocephalic Neck: Normal Inspection, Full Range of Motion Respiratory/Chest: No Respiratory Distress, Lungs Clear, Normal Breath Sounds, No Accessory Muscle Use Cardiovascular: Normal Peripheral Pulses, Regular Rate, Rhythm, No Edema, No Gallop, No JVD, No Murmur, No Rub Peripheral Pulses: 3+: Radial (L), Radial (R) GI/Abdominal: Normal Bowel Sounds, Soft, Non-Tender, No Organomegaly, No Distention, No Abnormal Bruit, No Mass Back Exam: Normal Inspection, Full Range of Motion, NT Extremities: Normal Inspection, Normal Range of Motion, No Pedal Edema, Normal Capillary Refill Neurological: Alert, Oriented, Normal Cognition, No Motor/Sensory Deficits Psychiatric: Normal Affect Skin Exam: Warm, Dry, Intact, Normal Color, No Rash #1 Interpretation EKG Date: 11/03/20 Time: 01:23 Rhythm: NSR Rate (Beats/Min): 88 Rudd: Normal P-Wave: Present QRS: Normal ST-T: Normal QT: Normal Comparison: No Change (07/22/2020) Course - Vital Signs Last Recorded V/S: Last Vital Signs Temp 36.9 C 11/03/20 01:28 Pulse 70 11/03/20 05:55 Resp 16 11/03/20 05:55 BP 108/55 L 11/03/20 05:55 Pulse Ox 94 L 11/03/20 05:55 - Orders/Labs/Meds Labs: Laboratory Tests 11/03/20 11/03/20 11/03/20 Range/Units 01:56 01:56 04:30 WBC 6.30 (3.98-10.04) K/mm3 RBC 3.68 L (3.98-5.22) M/mm3 Hgb 10.7 L D (11.2-15.7) gm/dl Hct 34.2 (34.1-44.9) % MCV 92.9 (79.4-94.8) fl MCH 29.1 (25.6-32.2) pg MCHC 31.3 L (32.2-35.5) g/dl RDW Std Deviation 44.9 (36.4-46.3) fL Plt Count 251 (182-369) K/mm3 MPV 8.2 L (9.4-12.3) fl Neutrophils % (Manual) 60 (40-60) % Band Neutrophils % 0 (0-10) % Lymphocytes % (Manual) 28 (20-40) % Atypical Lymphs % 0 % Monocytes % (Manual) 10 (2-10) % Eosinophils % (Manual) 2 (0.7-5.8) % Basophils % (Manual) 0 L (0.1-1.2) Platelet Estimate Adequate RBC Morph Comment Normal Sodium 141 (136-145) mEq/L Potassium 4.0 (3.5-5.1) mEq/L Chloride 104 (98-107) mEq/L Carbon Dioxide 30 (21-32) mEq/L Anion Gap 11.0 (5-15) BUN 11 (7-18) mg/dL Creatinine 0.7 (0.55-1.02) mg/dL Est Cr Clr Drug Dosing 55.77 mL/min Estimated GFR (MDRD) > 60 (>60) mL/min BUN/Creatinine Ratio 15.7 (14-18) Glucose 91 (70-99) mg/dL Calcium 8.1 L (8.5-10.1) mg/dL Total Bilirubin 0.3 (0.2-1.0) mg/dL AST 36 (15-37) U/L ALT 53 (14-59) U/L Alkaline Phosphatase 52 (46-116) U/L Troponin I < 0.017 < 0.017 (0.00-0.056) ng/mL Total Protein 5.9 L (6.4-8.2) g/dl Albumin 2.9 L (3.4-5.0) g/dl Globulin 3.0 gm/dL Albumin/Globulin Ratio 1.0 (1-2) - Re-Assessments/Exams Free Text/Narrative Re-Assessment/Exam: 11/03/20 03:07 A CBC, CMP, troponin, portable chest x-ray, and ECG were obtained at triage. The ECG demonstrates no ischemic changes. Portable chest radiograph reviewed. The cardiac silhouette is within normal limits. No pulmonary vascular congestion. No pleural effusions seen on this AP view. No focal infiltrate. No pneumothorax. There is hyperinflation and bilateral diaphragmatic flattening, consistent with COPD. There is thoracolumbar scoliosis. There is osteopenia. [place] in the right upper quadrant consistent with prior cholecystectomy. Formal read per the Radiologist pending. The patient's CBC is remarkable for a Hgb slightly depressed at 10.7, with a Hct normal at 34.2, with remainder of her CBC being unremarkable. Her CMP is unremarkable. Her troponin is undetectably low. I have ordered a repeat troponin to be obtained 4 hours after the onset of the patient's symptoms, at 04:30. 11/03/20 05:14 The patient's repeat troponin is still undetectably low. 11/03/20 05:24 Test results discussed with the patient and her . As above, with a negative troponin, the patient has not suffered an acute MS due to either plaque rupture or stent thrombosis. Further, I do not believe that her presentation was cardiac in etiology, as she was performing minimal exertion at the time. In order for angina to be precipitated, there would have to be a significant imbalance between the cardiac supply and demand, which would only occur if the patient was exerting herself, which was not present in this case. I believe the patient can safely be discharged home, however, I would recommend that she follow-up with her Fighter Pilot. Departure - Departure Time of Disposition: 05:26 Disposition: Home, Self-Care 01 Condition: Good Clinical Impression: Chest pressure, Rapid palpitations Instructions: Palpitations, [id number] Referrals: Veda Szymanski MD [Primary Care Provider] - Ty Hahn DO [Ordering Only Provider] - Elver Gallardo MD [Ordering Only Provider] - Forms: ED Department Discharge Additional Instructions: You were seen in the emergency room after developing sudden-onset left chest pressure and the sensation of a racing heart. Work-up in the ER included several blood tests, a chest x-ray, and an ECG. Your entire work-up was unremarkable. You have not suffered a heart attack. The exact cause of your symptoms is not known, but it does not appear to be related to your heart. You may resume your usual medications as prescribed. We recommend that you follow-up with your Fighter Pilot for further evaluation. If any other problems, please do not hesitate to return to the ER. Sepsis Event Note (ED) - Evaluation Sepsis Screening Result: No Definite Risk
[2020-11-03 03:35] VITALS: BP 108/55
[2020-11-03 05:56] VITALS: PULSE 70
--- NOTE | 2020-11-03 10:28 | CR ---
Chest: Portable view of the chest was obtained. Comparison: Prior chest x-ray of 07/22/20. Heart size and mediastinum are normal. Lungs are clear with no acute parenchymal change. Lungs are somewhat hyperinflated. Surgical clips are seen from previous cholecystectomy. Bony structures are osteopenic. Scoliosis is noted within the spine. Impression: 1. Emphysematous change and other findings believed to be chronic. 2. Nothing acute is appreciated on portable chest x-ray. Diagnostic code #2
== END 2020-11-03 05:51 | disposition home or self-care (01) ==
LOC: JD.ED 01:17
DX: R07.89 Other chest pain (principal); R00.2 Palpitations; E03.9 Hypothyroidism, unspecified; Z79.82 Long term (current) use of aspirin; Z79.899 Other long term (current) drug therapy
CPT/HCPCS: 36415; 71045; 71045-26; 80053; 84484; 85007; 85027; 93005; 93010; 99284; 99285-25

== ENCOUNTER 2021-07-23 13:07 | Emergency (ER) | payer MEDICARE, BC ==
[2021-07-23 13:30] VITALS: BP 126/56; PULSE 84
[2021-07-23 14:45] LABS: ESTIMATED GFR > 60 mL/min (>60)
== END 2021-07-23 16:25 | disposition home or self-care (01) ==
LOC: JD.ED 13:07
DX: R20.2 Paresthesia of skin (principal); E03.9 Hypothyroidism, unspecified; Z90.49 Acquired absence of other specified parts of digestive tract; Z90.710 Acquired absence of both cervix and uterus; Z79.899 Other long term (current) drug therapy; Z79.82 Long term (current) use of aspirin
CPT/HCPCS: 36415; 70450; 70450-26; 80053; 83735; 85025; 99284-25

== ENCOUNTER 2021-09-30 12:13 | Emergency (ER) | payer MEDICARE, BC ==
[2021-09-30] MEDS ORDERED: Sodium Chloride 0.9% 10 ML Syringe FLUSH PRN (12:51)
[2021-09-30 15:32] VITALS: BP 91/50; PULSE 78
== END 2021-09-30 17:00 | disposition home or self-care (01) ==
LOC: JD.ED 12:13
DX: R07.89 Other chest pain (principal); E03.9 Hypothyroidism, unspecified; Z88.1 Allergy status to other antibiotic agents; Z79.01 Long term (current) use of anticoagulants; Z79.82 Long term (current) use of aspirin; Z79.899 Other long term (current) drug therapy
CPT/HCPCS: 36415; 71045; 80053; 81003; 83735; 84484; 85025; 85379; 93005; 99285; J3490; 93010; 99284

== ENCOUNTER 2022-03-19 08:33 | Emergency (ER) | payer MEDICARE, BC ==
[2022-03-19] MEDS ORDERED: Sodium Chloride 0.9% 10 ML Syringe FLUSH PRN (08:45)
[2022-03-19] MEDS ORDERED: Aspirin 81 MG Tab.Chew PO ONE (08:59)
[2022-03-19] MEDS ORDERED: fentaNYL 100 MCG/2 ML SDV IVPUSH ONE (08:59)
[2022-03-19 20:48] VITALS: BP 104/80; PULSE 80
== END 2022-03-19 12:15 | disposition home or self-care (01) ==
LOC: JD.ED 08:33
DX: R07.89 Other chest pain (principal); E03.9 Hypothyroidism, unspecified; Z88.1 Allergy status to other antibiotic agents; Z79.82 Long term (current) use of aspirin; Z79.02 Long term (current) use of antithrombotics/antiplatelets; Z79.899 Other long term (current) drug therapy
CPT/HCPCS: 36415; 71045; 80053; 83735; 83880; 84484; 85025; 85379; 85610; 85730; 93005; 99285; A9270; J3010; J3490

== ENCOUNTER 2022-07-24 01:58 | Emergency (ER) | payer MEDICARE, BC ==
[2022-07-24 02:22] VITALS: BP 122/77; PULSE 77
[2022-07-24] MEDS ORDERED: traMADol 50 MG Tab PO ONE (02:31)
== END 2022-07-24 03:00 | disposition home or self-care (01) ==
LOC: JD.ED 01:58
DX: M79.601 Pain in right arm (principal); M06.9 Rheumatoid arthritis, unspecified; E03.9 Hypothyroidism, unspecified; Z88.1 Allergy status to other antibiotic agents; Z79.82 Long term (current) use of aspirin; Z79.02 Long term (current) use of antithrombotics/antiplatelets; Z79.899 Other long term (current) drug therapy
CPT/HCPCS: 99283; A9270

== ENCOUNTER 2022-12-30 07:59 | Emergency (ER) | payer MEDICARE, BC ==
[2022-12-30] MEDS ORDERED: Sodium Chloride 0.9% 10 ML Syringe FLUSH PRN (08:26)
[2022-12-30 09:12] LABS: BASOPHILS PERCENT AUTO 0.6 % (0.0-1.0); EOSINOPHILS ABSOLUTE AUTO 0.1 K/mm3 (0.0-0.4); HEMATOCRIT 39.2 % (37.0-47.0); HEMOGLOBIN 13.2 gm/dl (12.0-16.0); IMMATURE GRAN ABSOLUTE AUTO 0.01 K/mm3 (0.00-0.05); IMMATURE GRAN PERCENT AUTO 0.2 % (0.0-0.4); LYMPHOCYTES ABSOLUTE AUTO 1.3 K/mm3 (1.0-4.8); LYMPHOCYTES PERCENT AUTO 20.4 % (24.0-44.0); MEAN CORPUSCULAR HEMOGLOBIN 30.5 pg (28.0-32.0); MEAN CORPUSCULAR HGB CONC 33.7 g/dl (32.0-36.0); MEAN CORPUSCULAR VOLUME 90.5 fl (83.0-99.0); MEAN PLATELET VOLUME 7.8 fl (9.4-12.3); MONOCYTES ABSOLUTE AUTO 0.7 K/mm3 (0.0-0.8); NEUTROPHILS ABSOLUTE AUTO 4.4 K/mm3 (1.8-7.7); NEUTROPHILS PERCENT AUTO 66.8 % (41.0-71.0); PLATELET COUNT,PLT 188 K/mm3 (150-400); RED BLOOD CELL COUNT 4.33 M/mm3 (4.10-5.30); WHITE BLOOD CELL COUNT,WBC 6.52 K/mm3 (3.9-11.3)
[2022-12-30 09:37] LABS: ALANINE AMINOTRANSFERASE,ALT 48 U/L (14-59); ALBUMIN 3.2 g/dl (3.4-5.0); ALKALINE PHOSPHATASE 43 U/L (46-116); ANION GAP 11.1 (5-15); ASPARTATE AMNIOTRANSFERASE,AST 34 U/L (15-37); BILIRUBIN TOTAL 0.5 mg/dL (0.2-1.0); BLOOD UREA NITROGEN,BUN 14 mg/dL (7-18); CALCIUM 8.4 mg/dL (8.5-10.1); CARBON DIOXIDE,CO2 27 mEq/L (21-32); CHLORIDE,CL 104 mEq/L (98-107); CREATININE 0.7 mg/dL (0.55-1.02); EST CRCL DRUG DOSING (CG) 54.08 mL/min; ESTIMATED GFR 90 mL/min (>60); GLUCOSE RANDOM 97 mg/dL (70-99); POTASSIUM,K 4.1 mEq/L (3.5-5.1); PROTEIN TOTAL,TP 6.5 g/dl (6.4-8.2); SODIUM,NA 138 mEq/L (136-145)
[2022-12-30 09:41] LABS: C-REACTIVE PROTEIN < 0.2 mg/dL (<1.0)
[2022-12-30 14:37] VITALS: BP 149/87; PULSE 79
== END 2022-12-30 10:25 | disposition home or self-care (01) ==
LOC: JD.ED 07:59
DX: G51.8 Other disorders of facial nerve (principal); M06.9 Rheumatoid arthritis, unspecified; I25.10 Atherosclerotic heart disease of native coronary artery without angina pectoris; E03.9 Hypothyroidism, unspecified; Z79.899 Other long term (current) drug therapy; Z79.82 Long term (current) use of aspirin; Z88.1 Allergy status to other antibiotic agents
CPT/HCPCS: 36415; 70450; 70450-26; 80053; 82947; 83735; 85025; 85652; 86140; 99283; 99284

== ENCOUNTER 2023-09-23 19:38 | Emergency (ER) | payer MEDICARE, BC ==
[2023-09-23 20:44] VITALS: BP 149/68; PULSE 81
== END 2023-09-23 23:32 | disposition home or self-care (01) ==
LOC: JD.ED 19:38
DX: S00.03XA Contusion of scalp, initial encounter (principal); I25.10 Atherosclerotic heart disease of native coronary artery without angina pectoris; E03.9 Hypothyroidism, unspecified; Z90.49 Acquired absence of other specified parts of digestive tract; Z90.710 Acquired absence of both cervix and uterus; Z79.899 Other long term (current) drug therapy; Z79.82 Long term (current) use of aspirin; Z88.1 Allergy status to other antibiotic agents; W18.30XA Fall on same level, unspecified, initial encounter
CPT/HCPCS: 70450; 70450-26; 73070-26-LT; 73070-LT; 73502-26-LT; 73502-LT; 99282; 99284

== ENCOUNTER 2024-07-04 15:23 | Emergency (ER) | payer MEDICARE, BC ==
[2024-07-04 17:12] LABS: BASOPHILS PERCENT AUTO 0.5 % (0.0-1.0); EOSINOPHILS ABSOLUTE AUTO 0.2 K/mm3 (0.0-0.4); EOSINOPHILS PERCENT AUTO 3.2 % (0.0-6.0); HEMATOCRIT 38.5 % (37.0-47.0); HEMOGLOBIN 12.7 gm/dl (12.0-16.0); IMMATURE GRAN ABSOLUTE AUTO 0.01 K/mm3 (0.00-0.05); IMMATURE GRAN PERCENT AUTO 0.2 % (0.0-0.4); LYMPHOCYTES ABSOLUTE AUTO 1.4 K/mm3 (1.0-4.8); LYMPHOCYTES PERCENT AUTO 24.7 % (24.0-44.0); MEAN CORPUSCULAR HEMOGLOBIN 30.3 pg (28.0-32.0); MEAN CORPUSCULAR VOLUME 91.9 fl (83.0-99.0); MEAN PLATELET VOLUME 8.1 fl (9.4-12.3); MONOCYTES ABSOLUTE AUTO 0.5 K/mm3 (0.0-0.8); MONOCYTES PERCENT AUTO 8.9 % (0.0-8.0); NEUTROPHILS ABSOLUTE AUTO 3.5 K/mm3 (1.8-7.7); NEUTROPHILS PERCENT AUTO 62.5 % (41.0-71.0); PLATELET COUNT,PLT 185 K/mm3 (150-400); RED BLOOD CELL COUNT 4.19 M/mm3 (4.10-5.30); WHITE BLOOD CELL COUNT,WBC 5.59 K/mm3 (3.9-11.3)
[2024-07-04 17:32] LABS: INR 1.18; PROTHROMBIN TIME 12.4 SECONDS (9.7-12.0)
[2024-07-04 17:38] LABS: A/G RATIO 1.1 (1-2); ALANINE AMINOTRANSFERASE,ALT 36 U/L (14-59); ALBUMIN 3.2 g/dl (3.4-5.0); ALKALINE PHOSPHATASE 39 U/L (46-116); ANION GAP 9.4 (5-15); ASPARTATE AMNIOTRANSFERASE,AST 31 U/L (15-37); BILIRUBIN TOTAL 0.4 mg/dL (0.2-1.0); BLOOD UREA NITROGEN,BUN 13 mg/dL (7-18); BUN/CREATININE RATIO 18.6 (14-18); CALCIUM 8.5 mg/dL (8.5-10.1); CARBON DIOXIDE,CO2 27 mEq/L (21-32); CHLORIDE,CL 99 mEq/L (98-107); CREATINE KINASE,CK 85 U/L (26-192); CREATININE 0.7 mg/dL (0.55-1.02); EST CRCL DRUG DOSING (CG) 52.12 mL/min; ESTIMATED GFR 88 mL/min (>60); GLUCOSE RANDOM 91 mg/dL (70-99); LIPASE 37 U/L (16-77); PROTEIN TOTAL,TP 6.2 g/dl (6.4-8.2); SODIUM,NA 131 mEq/L (136-145)
[2024-07-04 17:45] LABS: TROPONIN I HIGH SENSITIVITY < 4 pg/mL (<=51)
[2024-07-04 17:46] LABS: POTASSIUM,K 4.4 mEq/L (3.5-5.1)
[2024-07-04 18:28] LABS: APPEARANCE,URINE CLEAR (Clear); BILIRUBIN,URINE NEGATIVE (Negative); COLOR,URINE YELLOW (Yellow); GLUCOSE,URINE NEGATIVE (Negative); KETONES,URINE TRACE (Negative); LEUKOCYTE ESTERASE,URINE 1+ (Negative); NITRITE,URINE NEGATIVE (Negative); OCCULT BLOOD,URINE NEGATIVE (Negative); PROTEIN,URINE NEGATIVE (Negative); UROBILINOGEN,URINE 0.2 (0.2-1.0)
[2024-07-04 18:40] LABS: BACTERIA,URINE RARE /hpf (FEW); EPITHELIAL CELLS,URINE NOT SEEN /hpf (0-5); MUCUS,URINE RARE /hpf (FEW); RBC,URINE 0-5 /hpf (0-5); WBC,URINE 0-5 /hpf (0-5)
[2024-07-04 19:53] VITALS: BP 112/80; PULSE 69
== END 2024-07-04 19:40 | disposition home or self-care (01) ==
LOC: JD.ED 15:23
DX: K21.9 Gastro-esophageal reflux disease without esophagitis (principal); I25.10 Atherosclerotic heart disease of native coronary artery without angina pectoris; E03.9 Hypothyroidism, unspecified; Z90.49 Acquired absence of other specified parts of digestive tract; Z79.899 Other long term (current) drug therapy; Z79.890 Hormone replacement therapy; Z88.1 Allergy status to other antibiotic agents
CPT/HCPCS: 36415; 71045; 71045-26; 80053; 81001; 82550; 83690; 83735; 84484; 85025; 85610; 93005; 93010; 99283; 99285

== ENCOUNTER 2024-08-04 21:30 | Emergency (ER) | payer MEDICARE, BC ==
[2024-08-04 22:00] VITALS: BP 155/81; PULSE 83
[2024-08-05] MEDS: Lidocaine 1% with EPINEPHrine 1:100,000 20 ML MDV ONE (00:15)
[2024-08-05] MEDS: Lidocaine/Epineph/Tetracaine 3 ML Syringe TOP ONE (00:15)
[2024-08-05] MEDS: Lidocaine 1% with EPINEPHrine 1:100,000 10 ML MDV INJECT ONE (00:17)
== END 2024-08-05 01:45 | disposition home or self-care (01) ==
LOC: JD.ED 21:30
DX: S01.01XA Laceration without foreign body of scalp, initial encounter (principal); S62.326A Displaced fracture of shaft of fifth metacarpal bone, right hand, initial encounter for closed fracture; I25.10 Atherosclerotic heart disease of native coronary artery without angina pectoris; E03.9 Hypothyroidism, unspecified; Z88.1 Allergy status to other antibiotic agents; Z88.8 Allergy status to other drugs, medicaments and biological substances; Z79.890 Hormone replacement therapy; Z79.899 Other long term (current) drug therapy; W01.198A Fall on same level from slipping, tripping and stumbling with subsequent striking against other object, initial encounter; Y93.89 Activity, other specified
CPT/HCPCS: 12002; 29125; 70450; 72070; 72100; 72125; 73130; 73502; 99284; A9270; J2004; 99283

== ENCOUNTER 2024-08-08 13:01 | Emergency (ER) | payer MEDICARE, BC ==
[2024-08-08 14:20] LABS: BASOPHILS PERCENT AUTO 0.6 % (0.0-1.0); EOSINOPHILS ABSOLUTE AUTO 0.2 K/mm3 (0.0-0.4); EOSINOPHILS PERCENT AUTO 2.7 % (0.0-6.0); HEMATOCRIT 38.1 % (37.0-47.0); HEMOGLOBIN 12.6 gm/dl (12.0-16.0); IMMATURE GRAN ABSOLUTE AUTO 0.02 K/mm3 (0.00-0.05); IMMATURE GRAN PERCENT AUTO 0.3 % (0.0-0.4); LYMPHOCYTES ABSOLUTE AUTO 1.6 K/mm3 (1.0-4.8); LYMPHOCYTES PERCENT AUTO 25.6 % (24.0-44.0); MEAN CORPUSCULAR HEMOGLOBIN 30.2 pg (28.0-32.0); MEAN CORPUSCULAR HGB CONC 33.1 g/dl (32.0-36.0); MEAN CORPUSCULAR VOLUME 91.4 fl (83.0-99.0); MEAN PLATELET VOLUME 7.9 fl (9.4-12.3); MONOCYTES ABSOLUTE AUTO 0.4 K/mm3 (0.0-0.8); MONOCYTES PERCENT AUTO 6.9 % (0.0-8.0); NEUTROPHILS PERCENT AUTO 63.9 % (41.0-71.0); PLATELET COUNT,PLT 196 K/mm3 (150-400); RED BLOOD CELL COUNT 4.17 M/mm3 (4.10-5.30); WHITE BLOOD CELL COUNT,WBC 6.26 K/mm3 (3.9-11.3)
[2024-08-08 14:51] LABS: ALBUMIN 3.1 g/dl (3.4-5.0); ANION GAP 8.6 (5-15); BILIRUBIN TOTAL 0.6 mg/dL (0.2-1.0); CALCIUM 9.2 mg/dL (8.5-10.1); CREATININE 0.6 mg/dL (0.55-1.02); EST CRCL DRUG DOSING (CG) 60.87 mL/min; POTASSIUM,K 4.6 mEq/L (3.5-5.1); PROTEIN TOTAL,TP 6.2 g/dl (6.4-8.2)
[2024-08-08 19:49] VITALS: BP 104/76; PULSE 76
== END 2024-08-08 16:30 | disposition home or self-care (01) ==
LOC: JD.ED 13:01
DX: R51.9 Headache, unspecified (principal); I25.10 Atherosclerotic heart disease of native coronary artery without angina pectoris; E03.9 Hypothyroidism, unspecified; Z90.49 Acquired absence of other specified parts of digestive tract; Z90.710 Acquired absence of both cervix and uterus; Z88.1 Allergy status to other antibiotic agents; Z79.890 Hormone replacement therapy; Z79.899 Other long term (current) drug therapy
CPT/HCPCS: 36415; 70450; 70450-26; 80053; 85025; 99283; 99284

== ENCOUNTER 2024-09-13 06:09 | Emergency (ER) | payer MEDICARE, BC ==
[2024-09-13] MEDS ORDERED: Sodium Chloride 0.9% 10 ML Syringe FLUSH PRN (06:28)
[2024-09-13 06:39] LABS: BASOPHILS ABSOLUTE AUTO 0.0 K/mm3 (0.0-0.2); BASOPHILS PERCENT AUTO 0.8 % (0.0-1.0); EOSINOPHILS ABSOLUTE AUTO 0.2 K/mm3 (0.0-0.4); EOSINOPHILS PERCENT AUTO 3.8 % (0.0-6.0); IMMATURE GRAN ABSOLUTE AUTO 0.01 K/mm3 (0.00-0.05); IMMATURE GRAN PERCENT AUTO 0.2 % (0.0-0.4); LYMPHOCYTES ABSOLUTE AUTO 1.5 K/mm3 (1.0-4.8); LYMPHOCYTES PERCENT AUTO 30.8 % (24.0-44.0); MEAN PLATELET VOLUME 8.1 fl (9.4-12.3); MONOCYTES ABSOLUTE AUTO 0.5 K/mm3 (0.0-0.8); MONOCYTES PERCENT AUTO 9.4 % (0.0-8.0); NEUTROPHILS ABSOLUTE AUTO 2.6 K/mm3 (1.8-7.7); NEUTROPHILS PERCENT AUTO 55.0 % (41.0-71.0); NRBC ABSOLUTE 0.00 (0.00-0.02); NRBC PERCENT 0.0 % (0.0-0.2); PLATELET COUNT,PLT 186 K/mm3 (150-400); RED BLOOD CELL COUNT 4.51 M/mm3 (4.10-5.30); WHITE BLOOD CELL COUNT,WBC 4.78 K/mm3 (3.9-11.3)
[2024-09-13 06:59] LABS: INR 1.13
[2024-09-13 07:03] LABS: A/G RATIO 1.1 (1-2); ALANINE AMINOTRANSFERASE,ALT 54 U/L (14-59); ASPARTATE AMNIOTRANSFERASE,AST 36 U/L (15-37); BILIRUBIN TOTAL 0.7 mg/dL (0.2-1.0); BLOOD UREA NITROGEN,BUN 13 mg/dL (7-18); CARBON DIOXIDE,CO2 28 mEq/L (21-32); CHLORIDE,CL 100 mEq/L (98-107); CREATININE 0.7 mg/dL (0.55-1.02); ESTIMATED GFR 88 mL/min (>60); GLUCOSE RANDOM 88 mg/dL (70-99); POTASSIUM,K 3.9 mEq/L (3.5-5.1); PROTEIN TOTAL,TP 6.4 g/dl (6.4-8.2); SODIUM,NA 136 mEq/L (136-145)
[2024-09-13 07:25] LABS: TROPONIN I HIGH SENSITIVITY < 4 pg/mL (<=51)
[2024-09-13 08:57] VITALS: BP 103/57; PULSE 61
== END 2024-09-13 08:22 | disposition home or self-care (01) ==
LOC: JD.ED 06:09
DX: S06.0X0A Concussion without loss of consciousness, initial encounter (principal); I25.10 Atherosclerotic heart disease of native coronary artery without angina pectoris; Z88.1 Allergy status to other antibiotic agents; Z88.8 Allergy status to other drugs, medicaments and biological substances; Z79.899 Other long term (current) drug therapy; Z79.02 Long term (current) use of antithrombotics/antiplatelets; Z95.5 Presence of coronary angioplasty implant and graft; Z90.49 Acquired absence of other specified parts of digestive tract; W01.198A Fall on same level from slipping, tripping and stumbling with subsequent striking against other object, initial encounter; Y93.89 Activity, other specified
CPT/HCPCS: 36415; 70450; 80053; 83735; 84484; 85025; 85610; 93005; 99284; A9270; 93010; 99283

== ENCOUNTER 2024-12-16 09:33 | Emergency (ER) | payer MEDICARE, BC ==
[2024-12-16] MEDS: Iopamidol 755 Mg/ML 100 ML Bottle IVPUSH ONE (09:51)
[2024-12-16 10:06] LABS: BASOPHILS ABSOLUTE AUTO 0.1 K/mm3 (0.0-0.2); BASOPHILS PERCENT AUTO 0.8 % (0.0-1.0); EOSINOPHILS ABSOLUTE AUTO 0.1 K/mm3 (0.0-0.4); EOSINOPHILS PERCENT AUTO 1.8 % (0.0-6.0); IMMATURE GRAN ABSOLUTE AUTO 0.01 K/mm3 (0.00-0.05); IMMATURE GRAN PERCENT AUTO 0.2 % (0.0-0.4); LYMPHOCYTES ABSOLUTE AUTO 1.4 K/mm3 (1.0-4.8); LYMPHOCYTES PERCENT AUTO 22.3 % (24.0-44.0); MEAN PLATELET VOLUME 8.0 fl (9.4-12.3); MONOCYTES ABSOLUTE AUTO 0.5 K/mm3 (0.0-0.8); MONOCYTES PERCENT AUTO 8.9 % (0.0-8.0); NEUTROPHILS ABSOLUTE AUTO 4.0 K/mm3 (1.8-7.7); NEUTROPHILS PERCENT AUTO 66.0 % (41.0-71.0); NRBC ABSOLUTE 0.00 (0.00-0.02); NRBC PERCENT 0.0 % (0.0-0.2); PLATELET COUNT,PLT 199 K/mm3 (150-400); RED BLOOD CELL COUNT 4.60 M/mm3 (4.10-5.30); WHITE BLOOD CELL COUNT,WBC 6.06 K/mm3 (3.9-11.3)
[2024-12-16 10:24] LABS: INR 1.14
[2024-12-16 10:25] LABS: PTT,PARTIAL THROMBOPLSTIN TIME 25.0 SECONDS (21.7-31.4)
[2024-12-16 10:30] LABS: A/G RATIO 1.0 (1-2); ALANINE AMINOTRANSFERASE,ALT 49 U/L (14-59); ASPARTATE AMNIOTRANSFERASE,AST 38 U/L (15-37); BILIRUBIN TOTAL 0.7 mg/dL (0.2-1.0); BLOOD UREA NITROGEN,BUN 13 mg/dL (7-18); CARBON DIOXIDE,CO2 28 mEq/L (21-32); CHLORIDE,CL 99 mEq/L (98-107); CREATININE 0.8 mg/dL (0.55-1.02); ESTIMATED GFR 75 mL/min (>60); GLUCOSE RANDOM 112 mg/dL (70-99); POTASSIUM,K 3.9 mEq/L (3.5-5.1); PROTEIN TOTAL,TP 6.4 g/dl (6.4-8.2); SODIUM,NA 135 mEq/L (136-145); TROPONIN I HIGH SENSITIVITY 6 pg/mL (<=51)
[2024-12-16] MEDS: Sodium Chloride 0.9% 10 ML Syringe FLUSH PRN (10:42)
[2024-12-16] MEDS: diphenhydrAMINE 50 MG/ML SDV IVPUSH ONE (10:42)
[2024-12-16] MEDS: Ketorolac 15 MG/ML SDV IVPUSH ONE (10:51)
[2024-12-16 12:20] VITALS: BP 111/67; PULSE 66
== END 2024-12-16 11:47 | disposition home or self-care (01) ==
LOC: JD.ED 09:33
DX: R51.9 Headache, unspecified (principal); R68.84 Jaw pain; I25.10 Atherosclerotic heart disease of native coronary artery without angina pectoris; E03.9 Hypothyroidism, unspecified; Z79.899 Other long term (current) drug therapy; Z79.890 Hormone replacement therapy; Z88.1 Allergy status to other antibiotic agents; Z90.49 Acquired absence of other specified parts of digestive tract; Z90.710 Acquired absence of both cervix and uterus
CPT/HCPCS: 36415; 70450; 70450-26; 70496; 70496-26; 70498; 70498-26; 80053; 82947; 84484; 85025; 85610; 85730; 93005; 93010; 96374; 96375; 99284; 99284-25; J1200; J1885; J2765; J7030; Q9967

== ENCOUNTER 2024-12-29 14:15 | Emergency (ER) | payer MEDICARE, BC ==
[2024-12-29] MEDS: fentaNYL 100 MCG/2 ML SDV IVPUSH ONE ×2 (14:33→15:12)
[2024-12-29 14:35] LABS: BASOPHILS ABSOLUTE AUTO 0.1 K/mm3 (0.0-0.2); BASOPHILS PERCENT AUTO 0.6 % (0.0-1.0); EOSINOPHILS ABSOLUTE AUTO 0.1 K/mm3 (0.0-0.4); EOSINOPHILS PERCENT AUTO 1.0 % (0.0-6.0); IMMATURE GRAN ABSOLUTE AUTO 0.03 K/mm3 (0.00-0.05); IMMATURE GRAN PERCENT AUTO 0.3 % (0.0-0.4); LYMPHOCYTES ABSOLUTE AUTO 2.6 K/mm3 (1.0-4.8); LYMPHOCYTES PERCENT AUTO 28.6 % (24.0-44.0); MEAN PLATELET VOLUME 7.9 fl (9.4-12.3); MONOCYTES ABSOLUTE AUTO 0.7 K/mm3 (0.0-0.8); MONOCYTES PERCENT AUTO 8.1 % (0.0-8.0); NEUTROPHILS ABSOLUTE AUTO 5.5 K/mm3 (1.8-7.7); NEUTROPHILS PERCENT AUTO 61.4 % (41.0-71.0); NRBC ABSOLUTE 0.00 (0.00-0.02); NRBC PERCENT 0.0 % (0.0-0.2); PLATELET COUNT,PLT 231 K/mm3 (150-400); RED BLOOD CELL COUNT 4.47 M/mm3 (4.10-5.30); WHITE BLOOD CELL COUNT,WBC 9.01 K/mm3 (3.9-11.3)
[2024-12-29 14:59] LABS: A/G RATIO 0.9 (1-2); ALANINE AMINOTRANSFERASE,ALT 31 U/L (14-59); ASPARTATE AMNIOTRANSFERASE,AST 26 U/L (15-37); BILIRUBIN TOTAL 0.4 mg/dL (0.2-1.0); BLOOD UREA NITROGEN,BUN 13 mg/dL (7-18); CARBON DIOXIDE,CO2 25 mEq/L (21-32); CHLORIDE,CL 97 mEq/L (98-107); CREATININE 0.8 mg/dL (0.55-1.02); ESTIMATED GFR 75 mL/min (>60); GLUCOSE RANDOM 155 mg/dL (70-99); POTASSIUM,K 3.9 mEq/L (3.5-5.1); PROTEIN TOTAL,TP 6.6 g/dl (6.4-8.2); SODIUM,NA 135 mEq/L (136-145)
[2024-12-29] MEDS: Sodium Chloride 0.9% 10 ML Syringe FLUSH PRN (15:15)
[2024-12-29] MEDS: Ondansetron 4 MG/2 ML SDV IVPUSH ONE ×2 (16:12→19:37)
[2024-12-29 17:45] LABS: APPEARANCE,URINE CLEAR (Clear); GLUCOSE,URINE NEGATIVE (Negative); OCCULT BLOOD,URINE TRACE-INTACT (Negative)
[2024-12-29 18:00] LABS: EPITHELIAL CELLS,URINE 0-5 /hpf (0-5)
[2024-12-29] MEDS: Propofol 200 MG/20 ML SDV IVPUSH ONE ×2 (19:38→19:50)
[2024-12-29] MEDS: cefTRIAXone 1 GM in Water For Injection, Sterile 10 ML IVPUSH ONE (20:05)
[2024-12-30 01:42] VITALS: BP 150/93; PULSE 77
== END 2024-12-29 22:35 | disposition home or self-care (01) ==
LOC: JD.ED 14:15
DX: S43.004A Unspecified dislocation of right shoulder joint, initial encounter (principal); S09.90XA Unspecified injury of head, initial encounter; N39.0 Urinary tract infection, site not specified; I25.10 Atherosclerotic heart disease of native coronary artery without angina pectoris; E03.9 Hypothyroidism, unspecified; Z90.49 Acquired absence of other specified parts of digestive tract; Z88.8 Allergy status to other drugs, medicaments and biological substances; Z88.1 Allergy status to other antibiotic agents; Z79.899 Other long term (current) drug therapy; W01.0XXA Fall on same level from slipping, tripping and stumbling without subsequent striking against object, initial encounter
CPT/HCPCS: 23650; 36415; 70450; 71045; 72125; 72170; 73030; 73060; 73090; 80053; 81001; 85025; 87086; 87088; 87186; 96374; 96375; 96376; 99153; 99284; J0696; J1171; J2405; J2704; J3010; J7030; 23655; 99152

== ENCOUNTER 2025-01-04 12:11 | Emergency (ER) | payer MEDICARE, BC ==
[2025-01-04 16:43] LABS: BASOPHILS ABSOLUTE AUTO 0.1 K/mm3 (0.0-0.2); BASOPHILS PERCENT AUTO 0.7 % (0.0-1.0); EOSINOPHILS ABSOLUTE AUTO 0.1 K/mm3 (0.0-0.4); EOSINOPHILS PERCENT AUTO 0.7 % (0.0-6.0); IMMATURE GRAN ABSOLUTE AUTO 0.02 K/mm3 (0.00-0.05); IMMATURE GRAN PERCENT AUTO 0.3 % (0.0-0.4); LYMPHOCYTES ABSOLUTE AUTO 1.8 K/mm3 (1.0-4.8); LYMPHOCYTES PERCENT AUTO 23.8 % (24.0-44.0); MEAN PLATELET VOLUME 7.7 fl (9.4-12.3); MONOCYTES ABSOLUTE AUTO 0.5 K/mm3 (0.0-0.8); MONOCYTES PERCENT AUTO 6.7 % (0.0-8.0); NEUTROPHILS ABSOLUTE AUTO 5.1 K/mm3 (1.8-7.7); NEUTROPHILS PERCENT AUTO 67.8 % (41.0-71.0); NRBC ABSOLUTE 0.00 (0.00-0.02); NRBC PERCENT 0.0 % (0.0-0.2); PLATELET COUNT,PLT 242 K/mm3 (150-400); RED BLOOD CELL COUNT 4.14 M/mm3 (4.10-5.30); WHITE BLOOD CELL COUNT,WBC 7.57 K/mm3 (3.9-11.3)
[2025-01-04 17:09] LABS: A/G RATIO 1.0 (1-2); ALANINE AMINOTRANSFERASE,ALT 25.0 U/L (14-59); ASPARTATE AMNIOTRANSFERASE,AST 21.0 U/L (15-37); BILIRUBIN TOTAL 0.7 mg/dL (0.2-1.0); BLOOD UREA NITROGEN,BUN 10.0 mg/dL (7-18); CARBON DIOXIDE,CO2 29.0 mEq/L (21-32); CHLORIDE,CL 103.0 mEq/L (98-107); CREATININE 0.6 mg/dL (0.55-1.02); EST CRCL DRUG DOSING (CG) 61.12 mL/min; ESTIMATED GFR 92.0 mL/min (>60); GLUCOSE RANDOM 90.0 mg/dL (70-99); POTASSIUM,K 4.4 mEq/L (3.5-5.1); PROTEIN TOTAL,TP 6.3 g/dl (6.4-8.2); SODIUM,NA 140.0 mEq/L (136-145); TROPONIN I HIGH SENSITIVITY 5.0 pg/mL (<=51)
[2025-01-04 18:35] VITALS: BP 132/79; PULSE 81
== END 2025-01-04 18:15 | disposition home or self-care (01) ==
LOC: JD.ED 12:11
DX: S50.01XA Contusion of right elbow, initial encounter (principal); M25.512 Pain in left shoulder; I25.10 Atherosclerotic heart disease of native coronary artery without angina pectoris; E03.9 Hypothyroidism, unspecified; Z90.710 Acquired absence of both cervix and uterus; Z79.899 Other long term (current) drug therapy; Z79.01 Long term (current) use of anticoagulants; Z88.1 Allergy status to other antibiotic agents; Z88.8 Allergy status to other drugs, medicaments and biological substances; W19.XXXA Unspecified fall, initial encounter
CPT/HCPCS: 36415; 70450; 70450-26; 73030-26-RT; 73030-RT; 80053; 84484; 85025; 93005; 93971-26-RT; 93971-RT; 99284